=== PATIENT | male | born 1940 | race Caucasian/White ===

== ENCOUNTER → 2016-11-30 | Outpatient (CLI) | payer MEDICARE, OTHER ==
[2016-11-30 10:22] LABS: PROTHROMBIN TIME 13.5 SEC (11.4-15.4)
[2016-11-30 10:23] LABS: PARTIAL THROMBOPLASTIN TIME 31.8 SEC (23.5-35.8)
== END ==
LOC: OD 08:35
PROVIDERS: ATTEND Physician Assistant
DX: Z79.01 Long term (current) use of anticoagulants (principal)
CPT/HCPCS: 36415; 85610; 85730

== ENCOUNTER 2017-01-13 14:18 | Emergency (ER) | payer MEDICARE, OTHER ==
--- NOTE | 2017-01-13 14:24 | ER Document Report ---
ED Medical Screen (RME) - General Stated Complaint: BLOOD IN URINE Mode of Arrival: Ambulatory Information source: Patient Notes: c/o blood in urine, described as pink coloration to his urine with small specks of blood, this morning when he got up. He had a medical procedure at hospital in [place], urethral dilatation, clean out and enlarged prostate. He had catheter taken out on Tuesday, follow-up on Tuesday and every seemed fine at that time. His urologist is Dr. Frazier. Denies abdominal pain, nausea, vomiting. Endorses smoking (10 cigs/day). I have greeted and performed a rapid initial assessment of this patient. A comprehensive ED assessment and evaluation of the patient, analysis of test results and completion of the medical decision making process will be conducted by additional ED providers. TRAVEL OUTSIDE OF THE [place] IN LAST 30 DAYS: No - Related Data Allergies/Adverse Reactions: No Known Allergies Allergy (Verified 01/13/17 14:22) Past Medical History - Past Medical History Cardiac Medical History: Reports: Hx Atrial Fibrillation, Hx Heart Attack - ? "10-20 years ago" Endocrine Medical History: Reports: Hx Diabetes Mellitus Type 2 Past Surgical History: Reports: Hx Cardiac Catheterization, Hx Cardiac Surgery - ablation, Hx Cholecystectomy, Hx Pacemaker
[2017-01-13 14:26] VITALS: BP 131/71
[2017-01-13 15:00] LABS: APPEARANCE,URINE SLIGHTLY-CLOUDY; BILIRUBIN,URINE NEGATIVE (NEGATIVE); GLUCOSE, URINE NEGATIVE (NEGATIVE); KETONES,URINE NEGATIVE (NEGATIVE); LEUKOCYTE ESTERASE,URINE SMALL (NEGATIVE); NITRITE,URINE NEGATIVE (NEGATIVE); PROTEIN,URINE 100 mg/dL (NEGATIVE); URINE SPECIFIC GRAVITY 1.008; UROBILINOGEN,URINE NEGATIVE mg/dL (<2.0)
--- NOTE | 2017-01-13 15:16 | ER Document Report ---
ED GI/ - General Mode of Arrival: Ambulatory Information source: Patient TRAVEL OUTSIDE OF THE [place] IN LAST 30 DAYS: No - HPI Patient complains to provider of: Hematuria. No: Dysuria Onset: This morning Associated symptoms: Other - see above <JAMAR MILLER - Last Filed: 01/13/17 16:13> <PIEROLYDIA OBANDO ANDREW - Last Filed: 01/13/17 22:43> - General Chief Complaint: Urinary Problem Stated Complaint: BLOOD IN URINE Notes: 76 year old male with history of a TURP procedure performed 1.5 weeks ago presents to the ED complaining of hematuria that began this morning. Patient reports that he had no complications with the TURP procedure. Patient denies dysuria, abdominal pain, or back pain, but reports constipation for the past 2- 3 days. Patient is currently on Coumadin. Patient's urologist is Dr. Frazier. ( JAMAR MILLER) - Related Data Allergies/Adverse Reactions: No Known Allergies Allergy (Verified 01/13/17 14:22) Past Medical History - General Information source: Patient - Social History Smoking Status: Current Every Day Smoker Chew tobacco use (# tins/day): No Frequency of alcohol use: None Drug Abuse: None Family History: Reviewed & Not Pertinent Patient has suicidal ideation: No Patient has homicidal ideation: No - Past Medical History Cardiac Medical History: Reports: Hx Atrial Fibrillation, Hx Heart Attack - ? "10-20 years ago", Hx Hypertension Endocrine Medical History: Reports: Hx Diabetes Mellitus Type 2 Renal/ Medical History: Denies: Hx Peritoneal Dialysis Past Surgical History: Reports: Hx Cardiac Catheterization, Hx Cardiac Surgery - ablation, Hx Cholecystectomy, Hx Pacemaker, Other - TURP procedure December 2016 - Immunizations Hx Diphtheria, Pertussis, Tetanus Vaccination: Yes <JAMAR MILLER - Last Filed: 01/13/17 16:13> Review of Systems - Review of Systems Constitutional: No symptoms reported EENT: No symptoms reported Cardiovascular: No symptoms reported Respiratory: No symptoms reported Gastrointestinal: See HPI, Constipation. denies: Abdominal pain Genitourinary: See HPI, Hematuria. denies: Dysuria Male Genitourinary: No symptoms reported Musculoskeletal: No symptoms reported. denies: Back pain Skin: No symptoms reported Hematologic/Lymphatic: No symptoms reported Neurological/Psychological: No symptoms reported -: Yes All other systems reviewed and negative <JAMAR MILLER - Last Filed: 01/13/17 16:13> Physical Exam - Vital signs Interpretation: Normal - General General appearance: Alert In distress: None - HEENT Head: Normocephalic, Atraumatic Eyes: Normal Extraocular movements intact: Yes Pupils: PERRL - Respiratory Respiratory status: No respiratory distress Breath sounds: Normal - Cardiovascular Rhythm: Regular Heart sounds: Normal auscultation - Abdominal Inspection: Normal - Back Back: Normal, Nontender - Extremities General upper extremity: Normal inspection, Normal ROM General lower extremity: Normal inspection, Normal ROM - Neurological Neuro grossly intact: Yes Cognition: Normal Orientation: AAOx4 Lulu Coma Scale Eye Opening: Spontaneous Lulu Coma Scale Verbal: Oriented [place] Coma Scale Motor: Obeys Commands Lulu Coma Scale Total: 15 Speech: Normal - Psychological Associated symptoms: Normal affect, Normal mood - Skin Skin Temperature: Warm Skin Moisture: Dry Skin Color: Normal <JAMAR MILLER - Last Filed: 01/13/17 16:13> Course - Laboratory Result Diagrams: 01/13/17 15:40 01/13/17 15:40 - Consults Dr. Garnett Time consulted: 15:18 <JAMAR MILLER - Last Filed: 01/13/17 16:13> - Laboratory Result Diagrams: 01/13/17 15:40 01/13/17 15:40 <LYDIA GARRIDO - Last Filed: 01/13/17 22:43> - Re-evaluation Re-evalutation: 01/13/17 Patient with hematuria. Patient's was discussed with Dr. Garnett from urology. Recommends keeping the patient on his Bactrim. Would not switch antibiotic. Would not give any IM or IV antibiotic. Patient is to follow-up with Dr. Frazier as scheduled. Chin immediately if any retention, dysuria, fever, nausea vomiting or any other concerns. Patient agrees with plan. He has not been taking his Coumadin because it was held for surgery. He has an appointment with his primary doctor. Stable for discharge. (LYDIA GARRIDO) - Vital Signs Vital signs: Temp Pulse Resp BP Pulse Ox 97.8 F 87 18 131/71 H 95 01/13/17 14:22 01/13/17 14:22 01/13/17 14:22 01/13/17 14:22 01/13/17 14:22 - Laboratory Laboratory results interpreted by me: 01/13/17 01/13/17 01/13/17 14:25 15:40 15:40 RBC 3.84 L Hgb 12.8 L MCV 99 H MCH 33.5 H Sodium 133.0 L Creatinine 1.42 H Est GFR ( Amer) 59 L Est GFR (Non-Af Amer) 49 L Urine Protein 100 H Urine Blood LARGE H Ur Leukocyte Esterase SMALL H - Consults Dr. Garnett Reason for consultation: 01/13/17 15:18 Patient was discussed with Dr. Garnett and reports that the hematuria is from the TURP procedure. Dr. Garnett recommends not to change the patient's antibiotics and states that he doesn't necessarily need a urine culture. (JAMAR MILLER) Discharge <JAMAR MILLER - Last Filed: 01/13/17 16:13> <LYDIA GARRIDO - Last Filed: 01/13/17 22:43> - Discharge Clinical Impression: Hematuria Condition: Stable Disposition: HOME, SELF-CARE Instructions: Hematuria ([facility]) Additional Instructions: Please follow-up with your urologist. Please return if you have any further concerns or symptoms. Referrals: FARIDA FRAZIER MD [NO LOCAL MD] - Follow up as needed Scribe Attestation: 01/13/17 22:43 I personally performed the services described in the documentation, reviewed and edited the documentation which was dictated to the scribe in my presence, and it accurately records my words and actions. (LYDIA GARRIDO) Scribe Documentation - Scribe Written by Scribe:: Mary Gillette, 01/13/2017 1621 acting as scribe for :: Ermias <JAMAR MILLER - Last Filed: 01/13/17 16:13>
[2017-01-13 15:49] LABS: ABSOLUTE BASOPHILS # (AUTO) 0.1 10^3/uL (0.0-0.2); ABSOLUTE LYMPHOCYTES (AUTO) 1.7 10^3/uL (0.5-4.7); ABSOLUTE MONOCYTES (AUTO) 0.5 10^3/uL (0.1-1.4); BASOPHILS % (AUTO) 1.2 % (0-2); EOSINOPHILS % (AUTO) 0.9 % (0-6); HEMOGLOBIN 12.8 g/dL (13.5-17.0); HGB HCT DIFFERENCE 0.4; LYMPHOCYTES % (AUTO) 32.5 % (13-45); MEAN CORPUSCULAR HEMOGLOBIN 33.5 pg (27.0-33.4); MEAN CORPUSCULAR HGB CONC 33.8 g/dL (32.0-36.0); MEAN CORPUSCULAR VOLUME 99 fl (80-97); MONOCYTES % (AUTO) 9.5 % (3-13); RED BLOOD COUNT 3.84 10^6/uL (4.35-5.55); RED CELL DISTRIBUTION WIDTH 13.4 % (11.5-14.0); SEGMENTED NEUTROPHILS % (AUTO) 55.9 % (42-78); WHITE BLOOD COUNT 5.4 10^3/uL (4.0-10.5)
[2017-01-13 15:55] LABS: PROTHROMBIN TIME 13.4 SEC (11.4-15.4)
[2017-01-13 16:16] LABS: ANION GAP 8 (5-19); BLOOD UREA NITROGEN 19 mg/dL (7-20); CALCIUM 8.8 mg/dL (8.4-10.2); CARBON DIOXIDE 27 mmol/L (22-30); CHLORIDE 98 mmol/L (98-107); CREATININE RESULT 1.42 mg/dL (0.52-1.25); GLUCOSE 105 mg/dL (75-110); POTASSIUM 4.8 mmol/L (3.6-5.0)
== END 2017-01-13 15:40 | disposition home or self-care (01) ==
LOC: ER 14:18
DX: R31.9 Hematuria, unspecified (principal); Z98.890 Other specified postprocedural states; K59.00 Constipation, unspecified; I10 Essential (primary) hypertension; E11.9 Type 2 diabetes mellitus without complications; F17.200 Nicotine dependence, unspecified, uncomplicated
CPT/HCPCS: 36415; 80048; 81001; 85025; 85610; 87086; 99283

== ENCOUNTER → 2017-01-14 | Outpatient (CLI) | payer MEDICARE, OTHER ==
[2017-01-14 14:13] LABS: ALANINE AMINOTRANSFERASE 51 U/L (21-72); ALBUMIN 3.9 g/dL (3.5-5.0); ALKALINE PHOSPHATASE 99 U/L (38-126); ASPARTATE AMINO TRANSFERASE 35 U/L (17-59); BILIRUBIN,TOTAL 0.7 mg/dL (0.2-1.3); CHOLESTEROL 119.88 mg/dL (0-200); Direct HDL 38 mg/dL (>40); TOTAL PROTEIN 6.4 g/dL (6.3-8.2); TRIGLYCERIDES 68 mg/dL (<150)
[2017-01-14 14:24] LABS: DIRECT LDL 61 mg/dL (<100)
== END ==
LOC: OD 12:45
PROVIDERS: ATTEND Specialist
DX: E78.4 Other hyperlipidemia (principal); E11.65 Type 2 diabetes mellitus with hyperglycemia; I10 Essential (primary) hypertension; I34.0 Nonrheumatic mitral (valve) insufficiency; I44.2 Atrioventricular block, complete; I25.10 Atherosclerotic heart disease of native coronary artery without angina pectoris; Z79.899 Other long term (current) drug therapy; I48.2 Chronic atrial fibrillation; I48.92 Unspecified atrial flutter; R06.00 Dyspnea, unspecified; R94.5 Abnormal results of liver function studies; F17.210 Nicotine dependence, cigarettes, uncomplicated; Z79.01 Long term (current) use of anticoagulants; Z95.0 Presence of cardiac pacemaker
CPT/HCPCS: 36415; 80061; 80076; 83036

== ENCOUNTER 2017-01-15 13:44 | Emergency (ER) | payer MEDICARE, OTHER ==
[2017-01-15 13:49] VITALS: BP 122/63
--- NOTE | 2017-01-15 13:50 | ER Document Report ---
ED Medical Screen (RME) - General Stated Complaint: BLOOD IN URINE Time seen by provider: 13:48 Mode of Arrival: Ambulatory Information source: Patient Notes: 76-year-old male with a history of benign prostatic hypertrophy had a TURP by Dr. Frazier 01-05-17. He had 3 episodes of painless hematuria today he thinks he accidentally took 5 mg of Warfarin last night. TRAVEL OUTSIDE OF THE [place] IN LAST 30 DAYS: No - Related Data Allergies/Adverse Reactions: No Known Allergies Allergy (Verified 01/13/17 14:22) Past Medical History - Past Medical History Cardiac Medical History: Reports: Hx Atrial Fibrillation, Hx Heart Attack - ? "10-20 years ago", Hx Hypertension Endocrine Medical History: Reports: Hx Diabetes Mellitus Type 2 Renal/ Medical History: Denies: Hx Peritoneal Dialysis Past Surgical History: Reports: Hx Cardiac Catheterization, Hx Cardiac Surgery - ablation, Hx Cholecystectomy, Hx Pacemaker, Other - TURP procedure December 2016 - Immunizations Hx Diphtheria, Pertussis, Tetanus Vaccination: Yes
[2017-01-15 14:09] LABS: ABSOLUTE BASOPHILS # (AUTO) 0.1 10^3/uL (0.0-0.2); ABSOLUTE LYMPHOCYTES (AUTO) 2.1 10^3/uL (0.5-4.7); ABSOLUTE MONOCYTES (AUTO) 0.5 10^3/uL (0.1-1.4); BASOPHILS % (AUTO) 0.9 % (0-2); EOSINOPHILS % (AUTO) 0.6 % (0-6); HEMATOCRIT 37.8 % (37.9-51.0); HEMOGLOBIN 12.8 g/dL (13.5-17.0); HGB HCT DIFFERENCE 0.6; LYMPHOCYTES % (AUTO) 30.9 % (13-45); MEAN CORPUSCULAR HEMOGLOBIN 33.4 pg (27.0-33.4); MEAN CORPUSCULAR HGB CONC 33.8 g/dL (32.0-36.0); MEAN CORPUSCULAR VOLUME 99 fl (80-97); MONOCYTES % (AUTO) 7.9 % (3-13); RED BLOOD COUNT 3.83 10^6/uL (4.35-5.55); RED CELL DISTRIBUTION WIDTH 13.5 % (11.5-14.0); SEGMENTED NEUTROPHILS % (AUTO) 59.7 % (42-78); WHITE BLOOD COUNT 6.6 10^3/uL (4.0-10.5)
[2017-01-15 14:17] LABS: PROTHROMBIN TIME 14.1 SEC (11.4-15.4)
[2017-01-15 14:18] LABS: APPEARANCE,URINE SLIGHTLY-CLOUDY; BILIRUBIN,URINE NEGATIVE (NEGATIVE); GLUCOSE, URINE NEGATIVE (NEGATIVE); KETONES,URINE NEGATIVE (NEGATIVE); LEUKOCYTE ESTERASE,URINE TRACE (NEGATIVE); NITRITE,URINE NEGATIVE (NEGATIVE); PARTIAL THROMBOPLASTIN TIME 32.8 SEC (23.5-35.8); PROTEIN,URINE >=500 mg/dL (NEGATIVE); URINE SPECIFIC GRAVITY 1.017
[2017-01-15 14:28] LABS: ALANINE AMINOTRANSFERASE 37 U/L (21-72); ALBUMIN 3.9 g/dL (3.5-5.0); ALKALINE PHOSPHATASE 89 U/L (38-126); ANION GAP 9 (5-19); ASPARTATE AMINO TRANSFERASE 35 U/L (17-59); BILIRUBIN,TOTAL 0.7 mg/dL (0.2-1.3); BLOOD UREA NITROGEN 18 mg/dL (7-20); CALCIUM 9.4 mg/dL (8.4-10.2); CARBON DIOXIDE 28 mmol/L (22-30); CHLORIDE 102 mmol/L (98-107); CREATININE RESULT 1.59 mg/dL (0.52-1.25); GLUCOSE 152 mg/dL (75-110); SODIUM 138.8 mmol/L (137-145); TOTAL PROTEIN 6.4 g/dL (6.3-8.2)
--- NOTE | 2017-01-15 14:28 | ER Document Report ---
ED GI/ - General Information source: Patient - HPI Patient complains to provider of: Hematuria Associated symptoms: Other - See above <DESTINY KING - Last Filed: 01/15/17 15:56> - General Mode of Arrival: Ambulatory TRAVEL OUTSIDE OF THE [place] IN LAST 30 DAYS: No <LYDIA GARRIDO - Last Filed: 01/15/17 23:08> - General Chief Complaint: Urinary Problem Stated Complaint: BLOOD IN URINE Notes: Patient is a 76 year old male who presents to the emergency department complaining of blood in urine. Patient was seen at this facility 2 days ago with similar complaints and this morning noticed that the blood in his urine appeared worse. Patient admits that he may have taken a blood thinner with his medications last night. Patient denies fever, back pain, and difficulty urinating. (DESTINY KING) - Related Data Allergies/Adverse Reactions: No Known Allergies Allergy (Verified 01/13/17 14:22) Past Medical History - General Information source: Patient - Social History Smoking Status: Current Every Day Smoker Chew tobacco use (# tins/day): Yes Frequency of alcohol use: None Drug Abuse: None Family History: Reviewed & Not Pertinent Patient has suicidal ideation: No Patient has homicidal ideation: No - Past Medical History Cardiac Medical History: Reports: Hx Atrial Fibrillation, Hx Heart Attack - ? "10-20 years ago", Hx Hypertension Endocrine Medical History: Reports: Hx Diabetes Mellitus Type 2 Renal/ Medical History: Denies: Hx Peritoneal Dialysis Past Surgical History: Reports: Hx Cardiac Catheterization, Hx Cardiac Surgery - ablation, Hx Cholecystectomy, Hx Pacemaker, Other - TURP procedure December 2016 - Immunizations Hx Diphtheria, Pertussis, Tetanus Vaccination: Yes <LYDIA GARRIDO - Last Filed: 01/15/17 23:08> Review of Systems - Review of Systems Constitutional: denies: Fever EENT: No symptoms reported Cardiovascular: No symptoms reported Respiratory: No symptoms reported Gastrointestinal: No symptoms reported Genitourinary: See HPI, Hematuria. denies: Other - Difficulty urinating Male Genitourinary: No symptoms reported Musculoskeletal: denies: Back pain Skin: No symptoms reported Hematologic/Lymphatic: No symptoms reported Neurological/Psychological: No symptoms reported -: Yes All other systems reviewed and negative <DESTINY KING - Last Filed: 01/15/17 15:56> Physical Exam - Vital signs Interpretation: Normal - General General appearance: Appears well, Alert - HEENT Head: Normocephalic, Atraumatic - Respiratory Respiratory status: No respiratory distress - Extremities General upper extremity: Normal inspection, Normal ROM, Normal strength General lower extremity: Normal inspection, Normal ROM, Normal strength - Neurological Neuro grossly intact: Yes Cognition: Normal Orientation: AAOx4 Lulu Coma Scale Eye Opening: Spontaneous [place] Coma Scale Verbal: Oriented [place] Coma Scale Motor: Obeys Commands Lulu Coma Scale Total: 15 Speech: Normal Motor strength normal: LUE, RUE, LLE, RLE - Psychological Associated symptoms: Normal affect, Normal mood - Skin Skin Temperature: Warm Skin Moisture: Dry Skin Color: Normal <DESTINY KING - Last Filed: 01/15/17 15:56> Course - Laboratory Result Diagrams: 01/15/17 13:55 01/15/17 13:55 <DESTINY KING - Last Filed: 01/15/17 15:56> - Laboratory Result Diagrams: 01/15/17 13:55 01/15/17 13:55 <LYDIA GARRIDO - Last Filed: 01/15/17 23:08> - Re-evaluation Re-evalutation: 01/15/17 Patient appears well. Blood work and urine within normal limits. Urine cultures reviewed from 2 days ago with no growth. Patient had been discussed with his urologist by myself 2 days ago. The patient is able to urinate, he can follow-up in the clinic. No need to change antibiotics. Patient thinks that she took a dose of warfarin by mistake. Stable for discharge. Return if any further concerns. (LYDIA GARRIDO) - Vital Signs Vital signs: Temp Pulse Resp BP Pulse Ox 97.8 F 81 18 122/63 100 01/15/17 13:48 01/15/17 13:48 01/15/17 13:48 01/15/17 13:48 01/15/17 13:48 - Laboratory Laboratory results interpreted by me: 01/15/17 01/15/17 01/15/17 13:55 13:55 13:55 RBC 3.83 L Hgb 12.8 L Hct 37.8 L MCV 99 H Creatinine 1.59 H Est GFR ( Amer) 52 L Est GFR (Non-Af Amer) 43 L Glucose 152 H Urine Protein >=500 H Urine Blood LARGE H Urine Urobilinogen 2.0 H Ur Leukocyte Esterase TRACE H Urine Ascorbic Acid 40 H Discharge <DESTINY KING - Last Filed: 01/15/17 15:56> <LYDIA GARRIDO - Last Filed: 01/15/17 23:08> - Discharge Clinical Impression: Hematuria Condition: Stable Disposition: HOME, SELF-CARE Instructions: Hematuria ([facility]) Additional Instructions: Please follow-up with your urologist this week. Scribe Attestation: 01/15/17 23:08 I personally performed the services described in the documentation, reviewed and edited the documentation which was dictated to the scribe in my presence, and it accurately records my words and actions. (LYDIA GARRIDO) Scribe Documentation - Scribe Written by Jenifere:: samantha Diaz, 01/15/17, 0873 acting as scribe for :: Neida <DESTINY KING - Last Filed: 01/15/17 15:56>
== END 2017-01-15 14:30 | disposition home or self-care (01) ==
LOC: ER 13:44
DX: R31.9 Hematuria, unspecified (principal); R39.198 Other difficulties with micturition; F17.210 Nicotine dependence, cigarettes, uncomplicated
CPT/HCPCS: 36415; 80053; 81001; 85025; 85610; 85730; 87086; 99283

== ENCOUNTER → 2017-01-21 | Outpatient (CLI) | payer MEDICARE, OTHER ==
[2017-01-21 17:06] LABS: ALANINE AMINOTRANSFERASE 40 U/L (21-72); ALBUMIN 3.8 g/dL (3.5-5.0); ALKALINE PHOSPHATASE 86 U/L (38-126); ANION GAP 11 (5-19); ASPARTATE AMINO TRANSFERASE 28 U/L (17-59); BILIRUBIN,TOTAL 0.6 mg/dL (0.2-1.3); BLOOD UREA NITROGEN 13 mg/dL (7-20); CARBON DIOXIDE 27 mmol/L (22-30); CHLORIDE 99 mmol/L (98-107); CREATININE RESULT 0.99 mg/dL (0.52-1.25); GLUCOSE 86 mg/dL (75-110); POTASSIUM 4.8 mmol/L (3.6-5.0); SODIUM 136.6 mmol/L (137-145)
== END ==
LOC: OD 14:38
PROVIDERS: ATTEND Physician Assistant
DX: E11.9 Type 2 diabetes mellitus without complications (principal)
CPT/HCPCS: 36415; 80053

== ENCOUNTER → 2017-02-14 | Outpatient (CLI) | payer MEDICARE, OTHER ==
[2017-02-14 10:00] LABS: PARTIAL THROMBOPLASTIN TIME 33.7 SEC (23.5-35.8); PROTHROMBIN TIME 13.3 SEC (11.4-15.4)
== END ==
LOC: OD 09:00
PROVIDERS: ATTEND Student in an Organized Health Care Education/Training Program
DX: Z79.01 Long term (current) use of anticoagulants (principal)
CPT/HCPCS: 36415; 85610; 85730

== ENCOUNTER → 2017-03-15 | Outpatient (CLI) | payer MEDICARE, OTHER ==
[2017-03-15 10:55] LABS: PROTHROMBIN TIME 38.2 SEC (11.4-15.4)
== END ==
LOC: OD 09:54
PROVIDERS: ATTEND Specialist
DX: I48.3 Typical atrial flutter (principal); Z79.01 Long term (current) use of anticoagulants
CPT/HCPCS: 36415; 85610

== ENCOUNTER → 2017-03-24 | Outpatient (CLI) | payer MEDICARE, OTHER ==
[2017-03-24 09:12] LABS: PROTHROMBIN TIME 36.1 SEC (11.4-15.4)
== END ==
LOC: OD 08:12
PROVIDERS: ATTEND Specialist
DX: I48.3 Typical atrial flutter (principal); Z79.01 Long term (current) use of anticoagulants
CPT/HCPCS: 36415; 85610

== ENCOUNTER → 2017-04-05 | Outpatient (CLI) | payer MEDICARE, OTHER ==
[2017-04-05 11:24] LABS: PROTHROMBIN TIME 32.9 SEC (11.4-15.4)
== END ==
LOC: OD 10:45
PROVIDERS: ATTEND Specialist
DX: I48.3 Typical atrial flutter (principal); Z79.01 Long term (current) use of anticoagulants
CPT/HCPCS: 36415; 85610

== ENCOUNTER → 2017-05-10 | Outpatient (CLI) | payer MEDICARE, OTHER ==
[2017-05-10 08:33] LABS: PROTHROMBIN TIME 13.8 SEC (11.4-15.4)
[2017-05-10 08:34] LABS: PARTIAL THROMBOPLASTIN TIME 35.5 SEC (23.5-35.8)
== END ==
LOC: OD 07:02
PROVIDERS: ATTEND Physician Assistant
DX: Z79.01 Long term (current) use of anticoagulants (principal)
CPT/HCPCS: 36415; 85610; 85730

== ENCOUNTER → 2017-05-19 | Outpatient (CLI) | payer MEDICARE, OTHER ==
[2017-05-19 09:04] LABS: ABSOLUTE BASOPHILS # (AUTO) 0.1 10^3/uL (0.0-0.2); ABSOLUTE EOSINOPHILS # (AUTO) 0.1 10^3/uL (0.0-0.6); ABSOLUTE LYMPHOCYTES (AUTO) 2.3 10^3/uL (0.5-4.7); ABSOLUTE MONOCYTES (AUTO) 0.7 10^3/uL (0.1-1.4); ABSOLUTE NEUT (AUTO) 4.5 10^3/uL (1.7-8.2); BASOPHILS % (AUTO) 1.5 % (0-2); EOSINOPHILS % (AUTO) 1.3 % (0-6); HEMATOCRIT 42.5 % (37.9-51.0); HEMOGLOBIN 13.9 g/dL (13.5-17.0); HGB HCT DIFFERENCE -0.8; LYMPHOCYTES % (AUTO) 30.2 % (13-45); MEAN CORPUSCULAR HEMOGLOBIN 33.1 pg (27.0-33.4); MEAN CORPUSCULAR HGB CONC 32.6 g/dL (32.0-36.0); MEAN CORPUSCULAR VOLUME 101 fl (80-97); RED CELL DISTRIBUTION WIDTH 13.4 % (11.5-14.0); WHITE BLOOD COUNT 7.8 10^3/uL (4.0-10.5)
[2017-05-19 09:31] LABS: ALANINE AMINOTRANSFERASE 62 U/L (21-72); ALBUMIN 4.1 g/dL (3.5-5.0); ALKALINE PHOSPHATASE 82 U/L (38-126); ANION GAP 9 (5-19); ASPARTATE AMINO TRANSFERASE 31 U/L (17-59); BILIRUBIN,DIRECT 0.3 mg/dL (0.0-0.4); BILIRUBIN,TOTAL 0.7 mg/dL (0.2-1.3); BLOOD UREA NITROGEN 26 mg/dL (7-20); CARBON DIOXIDE 29 mmol/L (22-30); CHLORIDE 103 mmol/L (98-107); CREATININE RESULT 0.94 mg/dL (0.52-1.25); Direct HDL 48 mg/dL (>40); GLUCOSE 101 mg/dL (75-110); POTASSIUM 4.7 mmol/L (3.6-5.0); SODIUM 140.5 mmol/L (137-145); TOTAL PROTEIN 7.1 g/dL (6.3-8.2); TRIGLYCERIDES 76 mg/dL (<150)
[2017-05-19 09:43] LABS: DIRECT LDL 60 mg/dL (<100)
[2017-05-19 09:50] LABS: ALANINE AMINOTRANSFERASE 62 U/L (21-72); ALBUMIN 4.1 g/dL (3.5-5.0); ALKALINE PHOSPHATASE 82 U/L (38-126); ASPARTATE AMINO TRANSFERASE 31 U/L (17-59)
[2017-05-19 09:51] LABS: BILIRUBIN,DIRECT 0.3 mg/dL (0.0-0.4); BILIRUBIN,TOTAL 0.7 mg/dL (0.2-1.3); DIRECT LDL 60 mg/dL (<100); TOTAL PROTEIN 7.1 g/dL (6.3-8.2); TRIGLYCERIDES 76 mg/dL (<150); VLDL CHOLESTEROL 15.2 mg/dL (10-31)
[2017-05-19 09:52] LABS: Direct HDL 48 mg/dL (>40)
== END ==
LOC: OD 08:36
PROVIDERS: ATTEND Physician Assistant
DX: E11.9 Type 2 diabetes mellitus without complications (principal); E78.5 Hyperlipidemia, unspecified; I10 Essential (primary) hypertension; R53.83 Other fatigue; R94.5 Abnormal results of liver function studies; Z79.899 Other long term (current) drug therapy; J44.9 Chronic obstructive pulmonary disease, unspecified; I48.2 Chronic atrial fibrillation; I34.0 Nonrheumatic mitral (valve) insufficiency; Z95.0 Presence of cardiac pacemaker; I25.10 Atherosclerotic heart disease of native coronary artery without angina pectoris; R06.00 Dyspnea, unspecified; Z79.01 Long term (current) use of anticoagulants; F17.210 Nicotine dependence, cigarettes, uncomplicated
CPT/HCPCS: 36415; 80053; 80061; 80076; 83036; 84443; 85025

== ENCOUNTER → 2017-05-30 | Outpatient (CLI) | payer MEDICARE, OTHER | LOC: OD 12:40 | PROVIDERS: ATTEND Specialist | DX: I48.3 Typical atrial flutter (principal); Z79.01 Long term (current) use of anticoagulants | CPT/HCPCS: 36415; 85610 ==

== ENCOUNTER → 2017-07-29 | Outpatient (CLI) | payer MEDICARE, OTHER ==
[2017-07-29 15:05] LABS: PROTHROMBIN TIME 28.7 SEC (11.4-15.4)
== END ==
LOC: OD 13:38
PROVIDERS: ATTEND Specialist
DX: I48.2 Chronic atrial fibrillation (principal); Z79.01 Long term (current) use of anticoagulants
CPT/HCPCS: 36415; 85610

== ENCOUNTER → 2017-08-25 | Outpatient (CLI) | payer MEDICARE, OTHER ==
[2017-08-25 11:30] LABS: PROTHROMBIN TIME 30.7 SEC (11.4-15.4)
== END ==
LOC: OD 10:32
PROVIDERS: ATTEND Specialist
DX: I48.2 Chronic atrial fibrillation (principal); Z79.01 Long term (current) use of anticoagulants
CPT/HCPCS: 36415; 85610

== ENCOUNTER → 2017-09-30 | Outpatient (CLI) | payer MEDICARE, OTHER ==
[2017-09-30 10:22] LABS: PROTHROMBIN TIME 38.3 SEC (11.4-15.4)
[2017-09-30 10:48] LABS: ALANINE AMINOTRANSFERASE 46 U/L (21-72); ALBUMIN 3.9 g/dL (3.5-5.0); ALKALINE PHOSPHATASE 107 U/L (38-126); ASPARTATE AMINO TRANSFERASE 37 U/L (17-59); BILIRUBIN,DIRECT 0.4 mg/dL (0.0-0.4); BILIRUBIN,TOTAL 0.9 mg/dL (0.2-1.3); CHOLESTEROL 114.93 mg/dL (0-200); Direct HDL 38 mg/dL (>40); TOTAL PROTEIN 6.3 g/dL (6.3-8.2); TRIGLYCERIDES 70 mg/dL (<150)
[2017-09-30 10:58] LABS: DIRECT LDL 65 mg/dL (<100)
== END ==
LOC: OD 09:35
PROVIDERS: ATTEND Specialist
DX: Z01.810 Encounter for preprocedural cardiovascular examination (principal); E11.9 Type 2 diabetes mellitus without complications; E78.4 Other hyperlipidemia; I48.2 Chronic atrial fibrillation; I10 Essential (primary) hypertension; I25.10 Atherosclerotic heart disease of native coronary artery without angina pectoris; I34.0 Nonrheumatic mitral (valve) insufficiency; Z95.0 Presence of cardiac pacemaker; R06.00 Dyspnea, unspecified; Z79.01 Long term (current) use of anticoagulants; F17.210 Nicotine dependence, cigarettes, uncomplicated; I48.92 Unspecified atrial flutter; R94.5 Abnormal results of liver function studies; Z79.899 Other long term (current) drug therapy
CPT/HCPCS: 36415; 80061; 80076; 83036; 85610

== ENCOUNTER → 2017-12-19 | Outpatient (CLI) | payer MEDICARE, OTHER ==
[2017-12-19 13:13] LABS: INTERNATIONAL RATION (INR) 3.47; PROTHROMBIN TIME 36.5 SEC (11.4-15.4)
== END ==
LOC: OD 11:54
PROVIDERS: ATTEND Specialist
DX: I48.2 Chronic atrial fibrillation (principal); Z79.01 Long term (current) use of anticoagulants
CPT/HCPCS: 36415; 85610

== ENCOUNTER → 2018-01-16 | Outpatient (CLI) | payer MEDICARE, OTHER ==
[2018-01-16 15:39] LABS: INTERNATIONAL RATION (INR) 3.88; PROTHROMBIN TIME 39.8 SEC (11.4-15.4)
== END ==
LOC: OD 14:28
PROVIDERS: ATTEND Specialist
DX: I48.2 Chronic atrial fibrillation (principal); Z79.01 Long term (current) use of anticoagulants
CPT/HCPCS: 36415; 85610

== ENCOUNTER → 2018-01-30 | Outpatient (CLI) | payer MEDICARE, OTHER ==
[2018-01-30 10:09] LABS: CHOLESTEROL 120.65 mg/dL (0-200); TRIGLYCERIDES 73 mg/dL (<150)
[2018-01-30 10:37] LABS: DIRECT LDL 77 mg/dL (<100)
== END ==
LOC: OD 09:14
PROVIDERS: ATTEND Specialist
DX: E78.4 Other hyperlipidemia (principal); E11.9 Type 2 diabetes mellitus without complications; I10 Essential (primary) hypertension; I48.2 Chronic atrial fibrillation; I34.0 Nonrheumatic mitral (valve) insufficiency; J44.9 Chronic obstructive pulmonary disease, unspecified; I44.2 Atrioventricular block, complete; Z95.0 Presence of cardiac pacemaker; I25.10 Atherosclerotic heart disease of native coronary artery without angina pectoris; R06.00 Dyspnea, unspecified; Z79.01 Long term (current) use of anticoagulants; F17.210 Nicotine dependence, cigarettes, uncomplicated; R94.5 Abnormal results of liver function studies; Z79.899 Other long term (current) drug therapy
CPT/HCPCS: 36415; 80061; 83036

== ENCOUNTER → 2018-02-16 | Outpatient (CLI) | payer MEDICARE, OTHER ==
[2018-02-16 10:23] LABS: INTERNATIONAL RATION (INR) 2.83; PROTHROMBIN TIME 31.1 SEC (11.4-15.4)
== END ==
LOC: OD 09:18
PROVIDERS: ATTEND Specialist
DX: I48.2 Chronic atrial fibrillation (principal); Z79.01 Long term (current) use of anticoagulants
CPT/HCPCS: 36415; 85610

== ENCOUNTER → 2018-02-27 | Outpatient (CLI) | payer MEDICARE, OTHER ==
[2018-02-27 10:17] LABS: INTERNATIONAL RATION (INR) 0.97; PARTIAL THROMBOPLASTIN TIME 35.1 SEC (23.5-35.8); PROTHROMBIN TIME 13.4 SEC (11.4-15.4)
== END ==
LOC: OD 09:19
PROVIDERS: ATTEND Pain Medicine Interventional Pain Medicine
DX: Z51.81 Encounter for therapeutic drug level monitoring (principal); Z79.01 Long term (current) use of anticoagulants
CPT/HCPCS: 36415; 85610; 85730

== ENCOUNTER → 2018-04-18 | Outpatient (CLI) | payer MEDICARE, OTHER ==
[2018-04-18 14:18] LABS: INTERNATIONAL RATION (INR) 3.02; PROTHROMBIN TIME 32.7 SEC (11.4-15.4)
== END ==
LOC: OD 13:11
PROVIDERS: ATTEND Specialist
DX: I48.2 Chronic atrial fibrillation (principal); Z79.01 Long term (current) use of anticoagulants
CPT/HCPCS: 36415; 85610

== ENCOUNTER → 2018-05-03 | Outpatient (CLI) | payer MEDICARE, OTHER ==
[2018-05-03 15:30] LABS: INTERNATIONAL RATION (INR) 0.99; PROTHROMBIN TIME 13.5 SEC (11.4-15.4)
[2018-05-03 15:31] LABS: PARTIAL THROMBOPLASTIN TIME 32.9 SEC (23.5-35.8)
== END ==
LOC: OD 14:40
PROVIDERS: ATTEND Pain Medicine Interventional Pain Medicine
DX: Z79.01 Long term (current) use of anticoagulants (principal); Z79.891 Long term (current) use of opiate analgesic
CPT/HCPCS: 36415; 85610; 85730

== ENCOUNTER → 2018-05-09 | Outpatient (CLI) | payer MEDICARE, OTHER ==
--- NOTE | 2018-05-09 15:47 | RADIOLOGY REPORT (SQ) ---
EXAM DESCRIPTION: CT LUMBAR SPINE WITHOUT COMPLETED DATE/TIME: 05/09/2018 2:51 pm REASON FOR STUDY: INTERVERTEBRAL DISC DEGENERATION, LUMBAR SPINE M51.36 OTHER INTERVERTEBRAL DISC D EGENERATION, LUMBAR REGION COMPARISON: CT abdomen pelvis 07/20/2016 TECHNIQUE: Axial images acquired through the lumbar spine without intravenous contrast. Images revi ewed with lung, soft tissue and bone windows. Reconstructed coronal and sagittal MPR images reviewed . All images stored on PACS. All CT scanners at this facility use dose modulation, iterative reconstruction, and/or weight based d osing when appropriate to reduce radiation dose to as low as reasonably achievable (ALARA). [facility]: Dose Right [facility]: CareDose [facility]: Dose Right [facility]: Teradose 4D [facility]: [employer] RADIATION DOSE: 15.6 mGy. LIMITATIONS: None. FINDINGS: SEGMENTATION: Normal. No transitional anatomy. ALIGNMENT: Straightening of cervical lordosis VERTEBRAL BODIES: No fractures. No dislocation. No acute findings. DISCS: The T12-L1 and L1-2 disc levels are unremarkable. At L2-3, very mild posterior diffuse disc bulging is present with moderate bilateral facet and ligame nt hypertrophy. Borderline central canal stenosis. Mild bilateral inferior foraminal narrowing with out exiting L2 nerve root impingement. At L3-4, mild to moderate central canal stenosis results from broad diffuse posterior disc bulge and bony spurring and bulky bilateral facet and ligament hypertrophy. There is mild bilateral inferior f oraminal narrowing without exiting L3 nerve root impingement. At L4-5, moderate central canal stenosis results from broad diffuse posterior disc bulge and bony spu rring and moderate facet and ligament hypertrophy. Moderate bilateral foraminal narrowing is present without exiting L4 nerve root impingement. At L5-S1, broad diffuse posterior disc bulging is present left greater than right with bilateral face t arthropathy. Findings are suspicious for left paracentral disc protrusion/ herniation, flattening the thecal sac in the left lateral recess near the takeoff of the left S1 nerve root best shown on ax ial image 85. No significant central canal stenosis or right foraminal narrowing. Moderate left for aminal narrowing with partial effacement of the fat around the exiting left L5 nerve root. PEDICLES, TRANSVERSE PROCESSES: No fractures. No dislocation. No acute findings. FACETS, POSTERIOR ELEMENTS: No fractures. No dislocation. Multilevel facet arthropathy. HARDWARE: None in the spine. VISUALIZED RIBS: No fractures. SOFT TISSUES: No significant or acute finding in adjacent soft tissues. OTHER: No other significant finding. IMPRESSION: Mild to moderate central canal stenosis at L3-4 Moderate central canal stenosis at L4-5 At L5-S1, findings are suspicious for a left paracentral disc herniation flattening the thecal sac ne ar the takeoff of the left S1 nerve root in the lateral recess. Moderate left L5-S1 foraminal narrow ing with partial effacement of fat around the exiting left L5 nerve root TECHNICAL DOCUMENTATION: JOB ID: [id number] Quality ID # 436: Final reports with documentation of one or more dose reduction techniques (e.g., Au tomated exposure control, adjustment of the mA and/or kV according to patient size, use of iterative reconstruction technique) 2010 [employer]- All Rights Reserved Reading location - IP/workstation name: [email or web address]
== END ==
LOC: RAD 13:56
PROVIDERS: ATTEND Physician Assistant
DX: M51.36 Other intervertebral disc degeneration, lumbar region (principal)
CPT/HCPCS: 72131

== ENCOUNTER → 2018-08-14 | Outpatient (CLI) | payer MEDICARE, OTHER ==
[2018-08-14 13:08] LABS: INTERNATIONAL RATION (INR) 1.02; PROTHROMBIN TIME 13.9 SEC (11.4-15.4)
[2018-08-14 13:09] LABS: PARTIAL THROMBOPLASTIN TIME 33.8 SEC (23.5-35.8)
== END ==
LOC: OD 11:31
PROVIDERS: ATTEND Physician Assistant Medical
DX: Z51.81 Encounter for therapeutic drug level monitoring (principal); Z79.01 Long term (current) use of anticoagulants
CPT/HCPCS: 36415; 85610; 85730

== ENCOUNTER → 2018-08-22 | Outpatient (CLI) | payer MEDICARE, OTHER ==
[2018-08-22 10:18] LABS: CHOLESTEROL 140.46 mg/dL (0-200); TRIGLYCERIDES 95 mg/dL (<150)
[2018-08-22 10:33] LABS: DIRECT LDL 75 mg/dL (<100)
== END ==
LOC: OD 08:58
PROVIDERS: ATTEND Internal Medicine
DX: E78.49 Other hyperlipidemia (principal); J44.9 Chronic obstructive pulmonary disease, unspecified; I10 Essential (primary) hypertension; I25.10 Atherosclerotic heart disease of native coronary artery without angina pectoris; R06.00 Dyspnea, unspecified; I34.0 Nonrheumatic mitral (valve) insufficiency; I44.2 Atrioventricular block, complete; I48.2 Chronic atrial fibrillation; Z79.01 Long term (current) use of anticoagulants; Z95.0 Presence of cardiac pacemaker; F17.210 Nicotine dependence, cigarettes, uncomplicated; R94.5 Abnormal results of liver function studies; Z79.899 Other long term (current) drug therapy
CPT/HCPCS: 36415; 80061

== ENCOUNTER → 2018-10-24 | Outpatient (CLI) | payer MEDICARE, OTHER ==
[2018-10-24 09:31] LABS: INTERNATIONAL RATION (INR) 1.01; PROTHROMBIN TIME 13.8 SEC (11.4-15.4)
== END ==
LOC: OD 08:22
PROVIDERS: ATTEND Physician Assistant
DX: Z79.01 Long term (current) use of anticoagulants (principal)
CPT/HCPCS: 36415; 85610; 85730

== ENCOUNTER → 2018-11-22 | Outpatient (CLI) | payer MEDICARE, OTHER ==
[2018-11-22 13:36] LABS: ABSOLUTE BASOPHILS # (AUTO) 0.1 10^3/uL (0.0-0.2); ABSOLUTE EOSINOPHILS # (AUTO) 0.3 10^3/uL (0.0-0.6); ABSOLUTE LYMPHOCYTES (AUTO) 2.8 10^3/uL (0.5-4.7); ABSOLUTE MONOCYTES (AUTO) 0.6 10^3/uL (0.1-1.4); ABSOLUTE NEUT (AUTO) 3.5 10^3/uL (1.7-8.2); EOSINOPHILS % (AUTO) 4.6 % (0-6); HEMATOCRIT 39.1 % (37.9-51.0); HEMOGLOBIN 13.6 g/dL (13.5-17.0); LYMPHOCYTES % (AUTO) 38.4 % (13-45); MEAN CORPUSCULAR HEMOGLOBIN 34.8 pg (27.0-33.4); MEAN CORPUSCULAR HGB CONC 34.8 g/dL (32.0-36.0); MEAN CORPUSCULAR VOLUME 100 fl (80-97); PLATELET COUNT 197 10^3/uL (150-450); RED BLOOD COUNT 3.91 10^6/uL (4.35-5.55); RED CELL DISTRIBUTION WIDTH 13.9 % (11.5-14.0); TOTAL CELLS COUNTED % (AUTO) 100 %; WHITE BLOOD COUNT 7.3 10^3/uL (4.0-10.5)
[2018-11-22 13:51] LABS: ALANINE AMINOTRANSFERASE 52 U/L (21-72); ALBUMIN 4.1 g/dL (3.5-5.0); ALKALINE PHOSPHATASE 77 U/L (38-126); ASPARTATE AMINO TRANSFERASE 47 U/L (17-59); BILIRUBIN,DIRECT 0.3 mg/dL (0.0-0.4); BILIRUBIN,TOTAL 0.8 mg/dL (0.2-1.3); TOTAL PROTEIN 6.6 g/dL (6.3-8.2)
[2018-11-23 08:55] LABS: INTERNATIONAL RATION (INR) 7.01
[2018-11-23 08:56] LABS: PROTHROMBIN TIME 63.5 SEC (11.4-15.4)
== END ==
LOC: OD 13:07
PROVIDERS: ATTEND Specialist
DX: J44.9 Chronic obstructive pulmonary disease, unspecified (principal); I48.2 Chronic atrial fibrillation; I34.0 Nonrheumatic mitral (valve) insufficiency; I44.2 Atrioventricular block, complete; I10 Essential (primary) hypertension; Z95.0 Presence of cardiac pacemaker; I25.10 Atherosclerotic heart disease of native coronary artery without angina pectoris; R06.00 Dyspnea, unspecified; Z79.01 Long term (current) use of anticoagulants; F17.210 Nicotine dependence, cigarettes, uncomplicated; R94.5 Abnormal results of liver function studies; E78.49 Other hyperlipidemia
CPT/HCPCS: 36415; 80076; 85025; 85610

== ENCOUNTER → 2018-11-27 | Outpatient (CLI) | payer MEDICARE, OTHER ==
[2018-11-27 11:13] LABS: INTERNATIONAL RATION (INR) 0.95
[2018-11-27 11:19] LABS: PROTHROMBIN TIME 13.2 SEC (11.4-15.4)
== END ==
LOC: OD 09:46
PROVIDERS: ATTEND Specialist
DX: I48.2 Chronic atrial fibrillation (principal); Z79.01 Long term (current) use of anticoagulants
CPT/HCPCS: 36415; 85610

== ENCOUNTER → 2018-12-05 | Outpatient (CLI) | payer MEDICARE, OTHER ==
[2018-12-05 10:27] LABS: INTERNATIONAL RATION (INR) 3.05
== END ==
LOC: OD 09:44
PROVIDERS: ATTEND Internal Medicine
DX: I48.2 Chronic atrial fibrillation (principal); Z79.01 Long term (current) use of anticoagulants
CPT/HCPCS: 36415; 85610

== ENCOUNTER → 2018-12-19 | Outpatient (CLI) | payer MEDICARE, OTHER ==
[2018-12-19 09:39] LABS: INTERNATIONAL RATION (INR) 3.21; PROTHROMBIN TIME 34.3 SEC (11.4-15.4)
== END ==
LOC: OD 08:45
PROVIDERS: ATTEND Internal Medicine
DX: I48.2 Chronic atrial fibrillation (principal); Z79.01 Long term (current) use of anticoagulants
CPT/HCPCS: 36415; 85610

== ENCOUNTER → 2019-01-08 | Outpatient (CLI) | payer MEDICARE, OTHER ==
[2019-01-08 10:15] LABS: INTERNATIONAL RATION (INR) 2.22; PROTHROMBIN TIME 25.6 SEC (11.4-15.4)
== END ==
LOC: OD 08:36
PROVIDERS: ATTEND Internal Medicine
DX: I48.2 Chronic atrial fibrillation (principal); Z79.01 Long term (current) use of anticoagulants
CPT/HCPCS: 36415; 85610

== ENCOUNTER → 2019-01-22 | Outpatient (CLI) | payer MEDICARE, OTHER ==
[2019-01-22 09:13] LABS: PROTHROMBIN TIME 25.5 SEC (11.4-15.4)
== END ==
LOC: OD 08:39
PROVIDERS: ATTEND Internal Medicine
DX: I48.2 Chronic atrial fibrillation (principal); Z79.01 Long term (current) use of anticoagulants
CPT/HCPCS: 36415; 85610

== ENCOUNTER → 2019-02-06 | Outpatient (CLI) | payer MEDICARE, OTHER ==
[2019-02-06 14:01] LABS: INTERNATIONAL RATION (INR) 2.34; PROTHROMBIN TIME 26.8 SEC (11.4-15.4)
== END ==
LOC: OD 12:24
PROVIDERS: ATTEND Internal Medicine
DX: I48.2 Chronic atrial fibrillation (principal); Z79.01 Long term (current) use of anticoagulants
CPT/HCPCS: 36415; 85610

== ENCOUNTER → 2019-04-26 | Outpatient (CLI) | payer MEDICARE, OTHER ==
[2019-04-26 10:18] LABS: INTERNATIONAL RATION (INR) 1.76; PROTHROMBIN TIME 21.4 SEC (11.4-15.4)
== END ==
LOC: OD 08:34
PROVIDERS: ATTEND Internal Medicine
DX: I48.2 Chronic atrial fibrillation (principal); Z79.01 Long term (current) use of anticoagulants
CPT/HCPCS: 36415; 85610

== ENCOUNTER → 2019-05-11 | Outpatient (CLI) | payer MEDICARE, OTHER ==
[2019-05-11 11:47] LABS: INTERNATIONAL RATION (INR) 2.13; PROTHROMBIN TIME 24.2 SEC (11.4-15.4)
== END ==
LOC: OD 10:36
PROVIDERS: ATTEND Internal Medicine
DX: I48.2 Chronic atrial fibrillation (principal); Z79.01 Long term (current) use of anticoagulants
CPT/HCPCS: 36415; 85610

== ENCOUNTER 2019-05-31 21:17 | Inpatient (IN) | payer MEDICARE, OTHER ==
--- NOTE | 2019-05-31 21:22 | ER Document Report ---
ED General - General Stated Complaint: POSSIBLE STOKE SYMPTOMS Time Seen by Provider: 05/31/19 21:22 Primary Care Provider: MICHELLE PARSONS MD [ACTIVE STAFF] - Follow up as needed TRAVEL OUTSIDE OF THE [place]. IN LAST 30 DAYS: No - HPI Patient complains to provider of: Confusion Notes: Acute onset confusion approximately 2-1/2 hours ago. called first possible decreased movement in his left hand. Profound confusion. Patient does answer questions appropriately intermittently will follow commands, but then stops answering questions. Patient does answer my questions. Brought in for code stroke evaluation blood glucose 112, patient been to be found to be febrile 101.4 This is a lengthy history of COPD and cardiac pacemaker - Related Data Allergies/Adverse Reactions: No Known Allergies Allergy (Verified 01/13/17 14:22) Past Medical History - Social History Smoking Status: Current Every Day Smoker Family History: Reviewed & Not Pertinent - Past Medical History Cardiac Medical History: Reports: Hx Atrial Fibrillation, Hx Heart Attack - ? "10-20 years ago", Hx Hypertension Endocrine Medical History: Reports: Hx Diabetes Mellitus Type 2 Renal/ Medical History: Denies: Hx Peritoneal Dialysis Past Surgical History: Reports: Hx Appendectomy, Hx Cardiac Catheterization, Hx Cardiac Surgery - ablation, Hx Cholecystectomy, Hx Pacemaker, Other - TURP procedure December 2016 - Immunizations Hx Diphtheria, Pertussis, Tetanus Vaccination: Yes Review of Systems - Review of Systems Notes: REVIEW OF SYSTEMS: CONSTITUTIONAL: -fevers, -chills EENT: -eye pain, -difficulty swallowing, -nasal congestion CARDIOVASCULAR: -chest pain, -syncope. RESPIRATORY: positive cough, positive SOB GASTROINTESTINAL: -abdominal pain, -nausea, -vomiting, -diarrhea GENITOURINARY: -dysuria, -hematuria MUSCULOSKELETAL: -back pain, -neck pain SKIN: -rash or skin lesions. HEMATOLOGIC: -easy bruising or bleeding. LYMPHATIC: -swollen, enlarged glands. -neurologic symptoms ALL OTHER SYSTEMS REVIEWED AND NEGATIVE. Physical Exam - Vital signs Vitals: Resp Pulse Ox 16 90 L 05/31/19 21:28 05/31/19 21:28 - Notes Notes: PHYSICAL EXAMINATION: GENERAL: Appearing male, severe acute distress. HEAD: Atraumatic, normocephalic. EYES: Pupils equal round and reactive to light, extraocular movements intact, s clera anicteric, conjunctiva are normal. ENT: nares patent, oropharynx clear without exudates. Moist mucous membranes. NECK: Normal range of motion, supple without lymphadenopathy LUNGS: Diffuse rhonchi HEART: Regular rate and rhythm without murmurs ABDOMEN: Soft, nontender, normoactive bowel sounds. No guarding, no rebound. No masses appreciated. EXTREMITIES: Normal range of motion, no pitting or edema. No cyanosis. NEUROLOGICAL: Cranial nerves grossly intact. Normal speech, normal gait. Normal sensory and motor exams. PSYCH: Normal mood, normal affect. SKIN: Warm, Dry, normal turgor, no rashes or lesions noted. Course - Re-evaluation Re-evalutation: 05/31/19 23:19 78-year-old male presents altered mental status and fever. Initially brought in as code stroke. Patient's emergent head CT unremarkable. Patient found to have a left lobe pneumonia. Normal lactic acid. Patient given fluid resuscitation. Initiate antibiotic therapy as well blood cultures pending at this time. Patient has large bowel movement in the department. Will send stool cultures as well. Patient will require admission to the hospital for his altered mental status 05/31/19 23:23 - Vital Signs Vital signs: Temp Pulse Resp BP Pulse Ox 99.8 F 73 24 H 137/62 H 92 05/31/19 23:02 05/31/19 22:03 05/31/19 22:03 05/31/19 22:03 05/31/19 22:03 - Laboratory Result Diagrams: 05/31/19 21:54 05/31/19 21:54 Laboratory results interpreted by me: 05/31/19 05/31/19 21:54 21:54 Monocytes % 1.3 L BUN 29 H Creatinine 1.51 H Est GFR ( Amer) 54 L Est GFR (Non-Af Amer) 45 L - EKG Interpretation by Me Additional EKG results interpreted by me: 05/31/19 22:22 Paced rhythm ventricular paced rhythm, 70 bpm, no ST elevations or depressions, normal QTC Discharge - Discharge Clinical Impression: Encephalopathy Pneumonia Qualifiers: Pneumonia type: due to unspecified organism Laterality: left Lung location: lower lobe of lung Qualified Code(s): J18.1 - Lobar pneumonia, unspecified organism Disposition: ADMITTED INPATIENT Admitting Provider: Tamir (Hospitalist) Referrals: MICHELLE PARSONS MD [ACTIVE STAFF] - Follow up as needed
--- NOTE | 2019-05-31 21:39 | RADIOLOGY REPORT (SQ) ---
EXAM DESCRIPTION: CT HEAD WITHOUT IV CONTRAST COMPLETED DATE/TME: 05/31/2019 00:00 CLINICAL HISTORY: 78 years, Male, STROKE SX COMPARISON: Prior study from 03/03/2016 TECHNIQUE: Noncontrast CT of the head was performed. Coronal and sagittal reformations were acquired. Images stored on PACS. All CT scanners at this facility use dose modulation, iterative reconstruction, and/or weight based dosing when appropriate to reduce radiation dose to as low as reasonably achievable (ALARA). [facility]: Dose Right [facility]: CareDose [facility]: Dose Right [facility]: Teradose 4D [facility]: [employer] LIMITATIONS: None. FINDINGS: Evaluation of the brain parenchyma reveals mild periventricular and patchy subcortical white matter low attenuation. No acute intracranial hemorrhage, mass effect, or extra-axial fluid is seen. The ventricles and sulcal spaces are mildly enlarged. Globes and orbits show no acute abnormality. Paranasal sinuses and mastoid air cells are clear. No depressed skull fractures. Calcifications are noted about the parasellar carotid arteries. IMPRESSION: No acute intracranial abnormality. Mild chronic microvascular ischemic change and generalized atrophy. TECHNICAL DOCUMENTATION: Quality ID # 436: Final reports with documentation of one or more dose reduction techniques (e.g., Automated exposure control, adjustment of the mA and/or kV according to patient size, use of iterative reconstruction technique) copyright 2011 [employer]- All Rights Reserved
--- NOTE | 2019-05-31 21:48 | RADIOLOGY REPORT (SQ) ---
XR CHEST 1 VIEW EXAM DATE: 05/31/2019 12:00 AM CDT HISTORY: STROKE SX. COMPARISON: 07/20/2016 FINDINGS: The heart size is within normal limits. Patchy opacity in the lower lung zone the left lung. No pleural effusions or pneumothorax. The bony thorax is intact. Stable right chest wall pacemaker. IMPRESSION: Left lung opacity which may represent infection.
[2019-05-31 22:09] LABS: ABSOLUTE MONOCYTES (AUTO) 0.1 10^3/uL (0.1-1.4); ABSOLUTE NEUT (AUTO) 3.4 10^3/uL (1.7-8.2); BASOPHILS % (AUTO) 0.4 % (0-2); EOSINOPHILS % (AUTO) 0.4 % (0-6); HEMATOCRIT 42.3 % (37.9-51.0); HEMOGLOBIN 14.4 g/dL (13.5-17.0); LYMPHOCYTES % (AUTO) 22.9 % (13-45); MEAN CORPUSCULAR HEMOGLOBIN 32.7 pg (27.0-33.4); MEAN CORPUSCULAR HGB CONC 34.1 g/dL (32.0-36.0); MEAN CORPUSCULAR VOLUME 96 fl (80-97); MONOCYTES % (AUTO) 1.3 % (3-13); PLATELET COUNT 207 10^3/uL (150-450); RED CELL DISTRIBUTION WIDTH 13.5 % (11.5-14.0); TOTAL CELLS COUNTED % (AUTO) 100 %; WHITE BLOOD COUNT 4.6 10^3/uL (4.0-10.5)
[2019-05-31 22:31] LABS: ALANINE AMINOTRANSFERASE 42 U/L (21-72); ALBUMIN 4.1 g/dL (3.5-5.0); ALKALINE PHOSPHATASE 98 U/L (38-126); ANION GAP 8 (5-19); ASPARTATE AMINO TRANSFERASE 49 U/L (17-59); BILIRUBIN,DIRECT 0.3 mg/dL (0.0-0.4); BILIRUBIN,TOTAL 0.8 mg/dL (0.2-1.3); BLOOD UREA NITROGEN 29 mg/dL (7-20); CALCIUM 8.8 mg/dL (8.4-10.2); CARBON DIOXIDE 24 mmol/L (22-30); CHLORIDE 106 mmol/L (98-107); GLUCOSE 105 mg/dL (75-110); LIPASE 124.6 U/L (23-300); POTASSIUM 4.3 mmol/L (3.6-5.0); SODIUM 137.5 mmol/L (137-145)
[2019-05-31] MEDS ORDERED: CEFTRIAXONE 1 GM/D5W RTU 1 GM/50 ML RTUPB IV ONE (23:16)
[2019-05-31] MEDS ORDERED: AZITHROMYCIN INJ 500 MG VIAL IV ONE (23:16)
[2019-05-31] MEDS ORDERED: ACETAMINOPHEN 325 MG TABLET PO ONE (23:18)
[2019-05-31] MEDS ORDERED: HYDRALAZINE HCL INJ/PF 20 MG/1 ML SDV IV PRN (23:23)
[2019-05-31] MEDS ORDERED: IPRATROPIUM/ALBUTEROL 0.5-2.5 MG/3 ML AMPUL NEB PRN ×2 (23:23)
[2019-05-31] MEDS ORDERED: ACETAMINOPHEN 325 MG TABLET PO PRN (23:23)
[2019-05-31] MEDS ORDERED: NICOTINE 14 MG/24 HR PATCH.TD24 TD ONE (23:27)
[2019-05-31] MEDS ORDERED: METOPROLOL TARTRATE 50 MG TABLET PO ONE (23:45)
[2019-05-31] MEDS ORDERED: CEFTRIAXONE INJ 1000 MG VIAL ONE (23:56)
[2019-06-01] MEDS: NORMAL SALINE 1000 ML 1,000 ML IV SCH ×2 (00:09→06:33)
[2019-06-01] MEDS ORDERED: LORAZEPAM INJ 2 MG/1 ML VIAL IV ONE (00:30)
[2019-06-01] MEDS ORDERED: NORMAL SALINE 250 ML IV PRN ×6 (00:32→11:42)
[2019-06-01] MEDS ORDERED: PHYTONADIONE INJ 10 MG/1 ML AMPULE SUBCUT ONE (00:33)
[2019-06-01] MEDS ORDERED: FLUTICASONE NASAL SPRAY 50 MCG/SPRY 120 SPRAY/16 GM NASL ONE (00:45)
[2019-06-01] MEDS ORDERED: FLUTICASONE NASAL SPRAY 50 MCG/SPRY 120 SPRAY/16 GM ONE (00:54)
[2019-06-01 01:09] LABS: INTERNATIONAL RATION (INR) 4.35; PARTIAL THROMBOPLASTIN TIME 41.1 SEC (23.5-35.8); PROTHROMBIN TIME 42.8 SEC (11.4-15.4)
[2019-06-01] MEDS ORDERED: ROCURONIUM BROMIDE INJ 50 MG/5 ML VIAL IV ONE (01:18)
[2019-06-01] MEDS ORDERED: ETOMIDATE INJ/PF 20 MG/10 ML SDV IV ONE (01:18)
[2019-06-01] MEDS: DEXTROSE 5%-WATER 250 ML with NOREPINEPHRINE BITARTRATE 4 MG IV PRN ×4 (01:25→06:52)
[2019-06-01] MEDS ORDERED: PANTOPRAZOLE SODIUM 40 MG VIAL IV ONE (01:28)
[2019-06-01] MEDS ORDERED: PANTOPRAZOLE SODIUM 40 MG VIAL IV PRN (01:36)
[2019-06-01] MEDS ORDERED: PROPOFOL 1,000 MG/100 ML INFUS..BTL IV PRN (01:37)
[2019-06-01] MEDS ORDERED: FENTANYL CITRATE INJ/PF 100 MCG/2 ML AMPUL IV PRN (01:37)
[2019-06-01] MEDS ORDERED: NORMAL SALINE 1000 ML 1,000 ML IV ONE (01:43)
[2019-06-01] MEDS: IPRATROPIUM/ALBUTEROL 0.5-2.5 MG/3 ML AMPUL NEB SCH ×2 (02:00→08:55)
[2019-06-01] MEDS: CHLORPHENIRAMINE MALEATE 4 MG TABLET PO SCH ×3 (02:05→11:28)
[2019-06-01] MEDS ORDERED: MIDAZOLAM 2 MG/2 ML INJ IV ONE (02:05)
[2019-06-01 02:06] LABS: HEMATOCRIT 45.1 % (37.9-51.0); HEMOGLOBIN 14.8 g/dL (13.5-17.0); MEAN CORPUSCULAR HEMOGLOBIN 32.2 pg (27.0-33.4); MEAN CORPUSCULAR HGB CONC 32.9 g/dL (32.0-36.0); MEAN CORPUSCULAR VOLUME 98 fl (80-97); PLATELET COUNT 174 10^3/uL (150-450); RED CELL DISTRIBUTION WIDTH 13.4 % (11.5-14.0)
--- NOTE | 2019-06-01 02:13 | RADIOLOGY REPORT (SQ) ---
EXAM DESCRIPTION: XR CHEST 1 VIEW COMPLETED DATE/TME: 06/01/2019 00:00 CLINICAL HISTORY: 78 years, Male, ETT PLACEMENT COMPARISON: 05/31/2019 NUMBER OF VIEWS: One TECHNIQUE: AP view the chest LIMITATIONS: None. FINDINGS: The endotracheal tube terminates approximately 5.5 cm above the asher. A nasogastric tube traverses the thorax with its tip outside the [id number] but beneath the diaphragm. Again noted is a left basilar airspace opacity. The right lung is clear. The heart size is stable with a right chest wall pacemaker. There is no pneumothorax. IMPRESSION: Satisfactory position of the endotracheal and nasogastric tubes. copyright 2010 [employer]- All Rights Reserved
[2019-06-01] MEDS ORDERED: OXYMETAZOLINE HCL 0.05% NASAL SPRAY 15 ML BOTTLE ONE (02:41)
[2019-06-01] MEDS ORDERED: HYDROCORTISONE SOD SUCCINATE INJ/PF 100 MG/2 ML SDV IV ONE (02:56)
[2019-06-01] MEDS ORDERED: EPINEPHRINE INJ 1 MG/10 ML DISP.SYRIN IV ONE ×2 (03:00→03:04)
[2019-06-01] MEDS ORDERED: NORMAL SALINE 100 ML with PANTOPRAZOLE SODIUM 80 MG IV PRN ×2 (03:01)
[2019-06-01 03:06] LABS: PROTHROMBIN TIME 53.2 SEC (11.4-15.4)
[2019-06-01 03:07] LABS: INTERNATIONAL RATION (INR) 5.72
[2019-06-01] MEDS ORDERED: PHENYLEPHRINE HCL INJ/PF 10 MG/1 ML SDV ONE ×3 (03:13→10:12)
[2019-06-01 03:21] LABS: HEMATOCRIT 40.8 % (37.9-51.0); HEMOGLOBIN 13.1 g/dL (13.5-17.0); MEAN CORPUSCULAR HEMOGLOBIN 32.2 pg (27.0-33.4); MEAN CORPUSCULAR VOLUME 101 fl (80-97); PLATELET COUNT 152 10^3/uL (150-450); RED BLOOD COUNT 4.06 10^6/uL (4.35-5.55); RED CELL DISTRIBUTION WIDTH 13.7 % (11.5-14.0); WHITE BLOOD COUNT 6.7 10^3/uL (4.0-10.5)
[2019-06-01 03:41] LABS: ABSOLUTE LYMPHOCYTES# (MANUAL) 4.9 10^3/uL (0.5-4.7); ABSOLUTE MONOCYTES # (MANUAL) 0.5 10^3/uL (0.1-1.4); ANION GAP 15 (5-19); BAND NEUTROPHILS % (MANUAL) 2 % (3-5); BASOPHILS % (MANUAL) 0 % (0-2); BLOOD UREA NITROGEN 29 mg/dL (7-20); CALCIUM 8.4 mg/dL (8.4-10.2); CARBON DIOXIDE 20 mmol/L (22-30); CHLORIDE 107 mmol/L (98-107); EOSINOPHILS % (MANUAL) 2 % (0-6); GLUCOSE 143 mg/dL (75-110); MONOCYTES % (MANUAL) 7 % (3-13); POTASSIUM 3.5 mmol/L (3.6-5.0); RBC MORPHOLOGY COMMENT NORMO-CYTIC/CHROMIC; SEGMENTED NEUTROPHILS % (MAN) 16 % (42-78); SODIUM 142.2 mmol/L (137-145); TOTAL CELLS COUNTED 100
[2019-06-01 03:42] LABS: PLATELET COMMENT ADEQUATE
[2019-06-01 03:44] LABS: LYMPHOCYTES % (MANUAL) 73 % (13-45)
[2019-06-01] MEDS: DEXTROSE 5%-WATER 250 ML with PHENYLEPHRINE HCL 40 MG IV PRN ×6 (03:45→10:21)
--- NOTE | 2019-06-01 04:07 | PDOC H&P ---
History of Present Illness Admission Date/PCP: 06/01/19 00:13 Patient complains of: Altered mental status History of Present Illness: MICHELLE BENOIT is a 78 year old male with a past medical history of atrial fibrillation on Coumadin, status post permanent pacemaker placement, persistent tobacco dependence and recent weight loss. Patient presents with 6 hours of altered mental status shortness of breath and fever prompting evaluation in the emergency room. Is found to have a left lower lobe infiltrate, started on empiric antibiotics for pneumonia and referred to the hospitalist. Shortly before my evaluation patient develops massive hemoptysis, altered mental status and hypotension. He is intubated, started on levo fed and 2 L normal saline bolus, with OG aspiration of blood. Chest x-ray is reevaluated and suspicious for hemorrhage versus pneumonic process. ENT Dr. Randolph is consulted, FFP, vitamin K and Protonix, PT and INR ordered. Patient's is contacted and reveals recent supratherapeutic INR, evidence of blood on his clothing to suggest previous hemoptysis at least 12 hours prior to presentation. During ENT evaluation which is negative for oral pharyngeal source of bleeding patient develops massive hemoptysis and V. tach, chest c ompressions are initiated he receives 2 rounds of epinephrine resulting paced rhythm with blood pressure 90/60 on Levophed and Tanner-Synephrine. Patient's is now at bedside and updated as to grave prognosis. She agrees to chemical code only and requesting information shared with her exclusively. Patient remains in unstable critical condition unable to transfer to tertiary care and consideration of pulmonology or CT surgery consult. Total critical care time 90 minutes. Past Medical History Cardiac Medical History: Reports: Atrial Fibrillation, Myocardial Infarction - ? "10-20 years ago", Hypertension Endocrine Medical History: Reports: Diabetes Mellitus Type 2 Psychiatric Medical History: Reports: Tobacco Dependency Past Surgical History Past Surgical History: Reports: Appendectomy, Cardiac Catheterization, Cholecystectomy, Pacemaker, Other - TURP procedure December 2016 Social History Information Source: Patient Smoking Status: Current Every Day Smoker Frequency of Alcohol Use: None Hx Recreational Drug Use: No Hx Prescription Drug Abuse: No - Advance Directive Resuscitation Status: Chemical Code Only Family History Family History: Hypertension Parental Family History Reviewed: Yes Children Family History Reviewed: Yes Sibling(s) Family History Reviewed.: Yes Medication/Allergy Home Medications: Aspirin 81 mg PO DAILY 07/20/16 Atorvastatin Calcium [Lipitor 20 mg Tablet] 20 mg PO DAILY 07/20/16 Bethanechol Chloride 25 mg PO BID 07/20/16 Bimatoprost [Lumigan 0.01% Oph Soln 2.5 ml/Bottle] 1 drop BTH_EYE DAILY 07/20/16 Dutasteride [Avodart] 0.5 mg PO DAILY 07/20/16 Ergocalciferol (Vitamin D2) [Vitamin D] 1,000 unit PO DAILY 07/20/16 Finasteride 5 mg PO DAILY 07/20/16 Metoprolol Succinate 25 mg PO BID 07/20/16 Multivitamin [Multivitamins] 1 each PO DAILY 07/20/16 Tamsulosin HCl [Flomax 0.4 mg Cap.sr] 0.4 mg PO BID 07/20/16 Tramadol HCl 50 mg PO 6XD 07/20/16 Warfarin Sodium 5 mg PO DAILY 07/20/16 Nitroglycerin [Nitrostat 0.4 mg (1/150 Gr) Tabs 25/Bottle] 1 tab SL Q5MP PRN #1 bottle 07/21/16 Allergies/Adverse Reactions: No Known Allergies Allergy (Verified 01/13/17 14:22) Review of Systems ROS unobtainable: Due to mental status Physical Exam Vital Signs: Temp Pulse Resp BP Pulse Ox 99.8 F 80 18 88/61 L 96 05/31/19 23:02 06/01/19 03:20 06/01/19 03:20 06/01/19 03:20 06/01/19 01:20 Intake & Output 05/30/19 05/31/19 06/01/19 11:59 11:59 11:59 Intake Total 50 Balance 50 Weight 70.3 kg General appearance: PRESENT: disheveled, severe distress, thin Head exam: PRESENT: atraumatic, normocephalic Eye exam: PRESENT: conjunctiva pale, EOMI, PERRLA Ear exam: PRESENT: normal external ear exam Mouth exam: PRESENT: moist, tongue midline, other - Bright red blood about the m outh Teeth exam: PRESENT: edentulous Neck exam: ABSENT: carotid bruit, JVD, lymphadenopathy, thyromegaly Respiratory exam: PRESENT: accessory muscle use, crackles, prolonged expiratory phas, retraction, symmetrical, tachypnea. ABSENT: rales, rhonchi, wheezes Cardiovascular exam: PRESENT: +S1, +S2, tachycardia Pulses: PRESENT: normal dorsalis pedis pul Vascular exam: PRESENT: normal capillary refill GI/Abdominal exam: PRESENT: normal bowel sounds, soft. ABSENT: distended, guarding, mass, organolmegaly, rebound, tenderness Rectal exam: PRESENT: deferred Extremities exam: PRESENT: full ROM. ABSENT: calf tenderness, clubbing, pedal edema Neurological exam: ABSENT: alert, altered, awake, oriented to person, oriented to place, CN II-XII grossly intact Psychiatric exam: PRESENT: agitated Skin exam: PRESENT: dry, intact, warm. ABSENT: cyanosis, rash Results Laboratory Results: 06/01/19 02:16 05/31/19 05/31/19 05/31/19 21:54 21:54 21:54 WBC 4.6 RBC 4.40 Hgb 14.4 Hct 42.3 MCV 96 MCH 32.7 MCHC 34.1 RDW 13.5 Plt Count 207 Seg Neutrophils % 75.0 Lymphocytes % 22.9 Monocytes % 1.3 L Eosinophils % 0.4 Basophils % 0.4 Absolute Neutrophils 3.4 Absolute Lymphocytes 1.0 Absolute Monocytes 0.1 Absolute Eosinophils 0.0 Absolute Basophils 0.0 Sodium 137.5 Potassium 4.3 Chloride 106 Carbon Dioxide 24 Anion Gap 8 BUN 29 H Creatinine 1.51 H Est GFR ( Amer) 54 L Est GFR (Non-Af Amer) 45 L Glucose 105 Lactic Acid 1.8 Calcium 8.8 Total Bilirubin 0.8 AST 49 ALT 42 Alkaline Phosphatase 98 Total Protein 7.0 Albumin 4.1 Lipase 124.6 Blood Type Antibody Screen 06/01/19 06/01/19 06/01/19 00:50 00:50 02:16 WBC 4.0 6.7 RBC 4.60 4.06 L Hgb 14.8 13.1 L Hct 45.1 40.8 MCV 98 H 101 H MCH 32.2 32.2 MCHC 32.9 32.0 RDW 13.4 13.7 Plt Count 174 152 Seg Neutrophils % Not Reportable Lymphocytes % Not Reportable Monocytes % Not Reportable Eosinophils % Not Reportable Basophils % Not Reportable Absolute Neutrophils Not Reportable Absolute Lymphocytes Not Reportable Absolute Monocytes Not Reportable Absolute Eosinophils Not Reportable Absolute Basophils Not Reportable Sodium Potassium Chloride Carbon Dioxide Anion Gap BUN Creatinine Est GFR ( Amer) Est GFR (Non-Af Amer) Glucose Lactic Acid Calcium Total Bilirubin AST ALT Alkaline Phosphatase Total Protein Albumin Lipase Blood Type O POSITIVE Antibody Screen NEGATIVE 05/31/19 21:54 Troponin I 0.016 Impressions: Head CT 05/31/19 00:00 IMPRESSION: No acute intracranial abnormality. Mild chronic microvascular ischemic change and generalized atrophy. TECHNICAL DOCUMENTATION: Quality ID # [id number]: Final reports with documentation of one or more dose reduction techniques (e.g., Automated exposure control, adjustment of the mA and/or kV according to patient size, use of iterative reconstruction technique) copyright 2010 [employer]- All Rights Reserved Chest X-Ray 06/01/19 00:00 IMPRESSION: Satisfactory position of the endotracheal and nasogastric tubes. copyright 2011 [employer]- All Rights Reserved Assessment and Plan - Diagnosis (1) Pulmonary hemorrhage Is this a current diagnosis for this admission?: Yes Plan: Likely multifactorial secondary to supratherapeutic INR and occult malignancy. Continue FFP, vitamin K, packed red blood cell transfusion as needed. Consider transfer to tertiary care for consideration of pulmonology or CT surgery evalu ation. (2) Pneumonia Qualifiers: Pneumonia type: due to unspecified organism Laterality: left Lung location: lower lobe of lung Qualified Code(s): J18.1 - Lobar pneumonia, uns pecified organism Is this a current diagnosis for this admission?: Yes Plan: Complicated by pulmonary hemorrhage, continue Rocephin, azithromycin and ventilator support. (3) Respiratory failure Is this a current diagnosis for this admission?: Yes Plan: Secondary to #1 and 2, continue ventilator management with follow-up ABG (4) Shock circulatory Is this a current diagnosis for this admission?: Yes Plan: Secondary to #1, Levophed, Tanner-Synephrine, IV fluids, FFP and packed red blood cells PRN (5) Coagulopathy Is this a current diagnosis for this admission?: Yes Plan: Likely multifactorial secondary to supratherapeutic INR and DIC. FFP, vitamin K, transfuse packed red blood cells as needed (6) Encephalopathy Is this a current diagnosis for this admission?: Yes Plan: Secondary to acute illness, supportive measures - Time Time Spent with patient: 35 or more minutes - Inpatient Certification Medical Necessity: Need Close Monitoring Due to Risk of Patient Decompensation
--- NOTE | 2019-06-01 04:10 | ADVANCED CARE ---
- Diagnosis (1) Pulmonary hemorrhage Diagnosis Current: Yes (2) Pneumonia Diagnosis Current: Yes (3) Respiratory failure Diagnosis Current: Yes (4) Shock circulatory Diagnosis Current: Yes (5) Coagulopathy Diagnosis Current: Yes (6) Encephalopathy Diagnosis Current: Yes Resuscitation Status: Chemical Code Only Discussion: 30-minute [id number] discussion with patients regarding his wishes. Formally full code agreeing to chemical code only at present. Care Planning Goals: Reevaluation with stabilization Document(s) Completed: H&P, critical care note, ACP Time Spent: 30 minutes
[2019-06-01 05:37] LABS: CREATINE KINASE MB 2.33 ng/mL (<4.55)
[2019-06-01 05:48] LABS: TROPONIN I 0.171 ng/mL
[2019-06-01] MEDS: HEPARIN SOD (PORCINE) 5,000 UNIT/ML 1 ML SYRINGE SUBCUT SCH ×2 (05:54→13:17)
[2019-06-01] MEDS ORDERED: NOREPINEPHRINE BITARTRATE INJ/PF 4 MG/4 ML SDV IV ONE ×2 (06:43→10:57)
[2019-06-01 07:14] LABS: APPEARANCE,URINE SLIGHTLY-CLOUDY; BILIRUBIN,URINE NEGATIVE (NEGATIVE); CALCIUM OXALATE CRYSTALS,URINE FEW /HPF; COLOR,URINE YELLOW; GLUCOSE, URINE NEGATIVE (NEGATIVE); KETONES,URINE TRACE mg/dL (NEGATIVE); LEUKOCYTE ESTERASE,URINE NEGATIVE (NEGATIVE); NITRITE,URINE NEGATIVE (NEGATIVE); PROTEIN,URINE NEGATIVE (NEGATIVE); URINE SPECIFIC GRAVITY 1.017; UROBILINOGEN,URINE NEGATIVE mg/dL (<2.0)
--- NOTE | 2019-06-01 08:10 | CONSULTATION REPORT E ---
Consultation Report NAME: MICHELLE BENOIT : 1940 AGE: 78Y DATE: 05/31/2019 ROOM: ED12 A TO: TAYA DICKSON D.O. FROM: MICHELLE SANTOS M.D., hospitalist for [facility] Requesting Physician REASON FOR CONSULTATION: Consult request was for a 78-year-old white male who [facility] [place] [facility] with [facility] with hemoptysis. HISTORY OF PRESENT ILLNESS: This is a 78-year-old white male with cardiac history with a pacemaker and history of AFib, currently taking Coumadin with current INR of greater than 4. Discussion with Dr. Santos and the patient's daughter who was bedside in the room was for the patient being confused today while at home and where he was found to have been sitting in his car for approximately 1 hour and was noted to be confused and shivering. There was no coughing at that time. 911 was contacted and the patient was brought in for evaluation. Once in the ER the patient began coughing and was reported to be bringing up large amounts of mucus. This was followed by continued coughing and active bleeding then being noted. It was unsure as to the exact source of the active bleeding. The patient was intubated. Chest x-ray confirmed a left lobe consolidation/infiltrate. The patient had a nasogastric tube placed with brown/clotted-type material being suctioned. There was no active bleeding noted to be coming from the patient's nose or mouth at any point. Nursing staff reported that the patient had had multiple bowel movements with no bright red blood or black tarry stools being noted. The patient's daughter reported no history of recurrent pneumonias. She did say that he had been a long-term smoker and still currently smokes. She said there was no history of head or neck cancers. PAST MEDICAL HISTORY: Same as above and was reviewed with the patient's daughter. PAST SURGICAL HISTORY: Noncontributory. SOCIAL HISTORY: The patient lives at home. The patient is a long-term smoker and current active smoker. MEDICATIONS: Coumadin, otherwise please refer to the patient's ER record. REVIEW OF SYSTEMS: CONSTITUTIONAL: Same as above, and the patient was noted to have chills earlier in the day. HEENT: Same as above. CARDIAC: History of pacemaker and AFib, currently taking Coumadin. RESPIRATORY/PULMONARY: Same as above. GASTROINTESTINAL: Reviewed. GENITOURINARY: Noncontributory. DERMATOLOGIC: Patient with history of skin cancer. ALLERGY/IMMUNOLOGY: Reviewed. HEMATOLOGY/ONCOLOGY: The patient is taking Coumadin for AFib. MUSCULOSKELETAL: Noncontributory. PHYSICAL EXAMINATION: GENERAL: The patient was present in emergency room 12 lying on the hospital bed and sedated and intubated with his daughter and granddaughter bedside. HEAD: Normocephalic, atraumatic. EYES: Closed. EARS: Right EAC and tympanic membrane were unremarkable, intact, and no middle ear effusion was present. Left EAC was only partially visualized due to the patient being in a head neutral position and intubated, and the tympanic membrane could not be visualized. NOSE: Left nasal passage was unremarkable, nasal septal deviation was noted, right nasal passage was notable for prominent vessels at Little area, but there was no active bleeding/bright red blood or blood clots noted in either nasal passage. ORAL CAVITY/OROPHARYNX: The patient was noted to be edentulous with the endotracheal tube and the nasogastric tube being in stable position transorally and in the midline. The nasogastric tube was taped to the endotracheal tube. The posterior oral cavity/oropharynx was full of dark blood with no active bleeding/bright red blood being noted. NECK: Supple with no obvious masses noted. At this point nursing staff was in the room and was preparing to hang blood products. The nasogastric tube was untaped from the endotracheal tube and placed to suction with gentle rotation of the tube to check for return of gastric contents/possible blood. During this process the patient was noted to go into an unstable rhythm and CPR was initiated with ER staff in the room. Dr. Santos entered and was bedside as well during the CPR process, which lasted less than 5 minutes. Epinephrine was administered during this time. There was severe bright red bleeding occurring into the patient's endotracheal tube and ventilator circuit. During this process there was no bright red bleeding noted at the patient's nose or mouth. The patient was noted to have a pulse and CPR was stopped. At this point additional lab work results were available, and the INR was now up over 5. Discussion was held with Dr. Santos with concern for additional bleeding if endoscopic evaluation were attempted. The decision was made to not perform endoscopic evaluation at this time as all bright red bleeding was confined to the patient's endotracheal tube and ventilator circuit. At this point the ENT consult was terminated. ENT remains available otherwise as needed, which Dr. Santos voiced an understanding of and agreed with. DICTATING PHYSICIAN: TAYA DICKSON D.O. [id number] PHY#: [id number] ID: [id number] JOB#: [id number] ACCT: [id number] cc:TAYA DICKSON D.O. >
[2019-06-01] MEDS ORDERED: VASOPRESSIN INJ 20 UNIT/1 ML VIAL ONE (08:28)
--- NOTE | 2019-06-01 09:10 | RADIOLOGY REPORT (SQ) ---
EXAM DESCRIPTION: CHEST SINGLE VIEW COMPLETED DATE/TIME: 06/01/2019 9:01 am REASON FOR STUDY: ETT placement COMPARISON: 06/01/2019 EXAM PARAMETERS: NUMBER OF VIEWS: One view. TECHNIQUE: Single frontal radiographic view of the chest acquired. RADIATION DOSE: NA LIMITATIONS: None. FINDINGS: Stable AP portable examination with extensive heterogeneous pulmonary opacity of the left lung. Unchanged support apparatus. IMPRESSION: Stable AP portable examination with extensive heterogeneous pulmonary opacity of the lef t lung. Unchanged support apparatus. TECHNICAL DOCUMENTATION: JOB ID: [id number] [employer]- All Rights Reserved Reading location - IP/workstation name: [email or web address]
[2019-06-01 09:12] LABS: ARTERIAL BLOOD BASE EXCESS -25.3 mmol/L; ARTERIAL BLOOD FIO2 100%; ARTERIAL BLOOD H2CO3 2.09 mmol/L (1.05-1.35); ARTERIAL BLOOD HCO3 9.9 mmol/L (20-24); ARTERIAL BLOOD O2 SATURATION 94.9 % (94-98)
[2019-06-01 09:14] LABS: ARTERIAL BLOOD PCO2 69.6 mmHg (35-45); ARTERIAL BLOOD PH 6.77 (7.35-7.45)
[2019-06-01] MEDS ORDERED: SODIUM BICARBONATE 8.4% INJ 50 MEQ/50 ML DISP.SYRIN ONE ×2 (09:16→10:57)
[2019-06-01] MEDS ORDERED: DEXTROSE 5%-WATER 1000 ML 1,000 ML with SODIUM BICARBONATE 150 MEQ IV PRN ×2 (09:23)
[2019-06-01] MEDS ORDERED: DEXTROSE 5%-WATER 250 ML with VASOPRESSIN 100 UNIT IV PRN ×2 (09:31)
[2019-06-01] MEDS ORDERED: SODIUM BICARBONATE 8.4% INJ 50 MEQ/50 ML DISP.SYRIN IV PRN (09:32)
[2019-06-01 09:33] LABS: INTERNATIONAL RATION (INR) 4.14; PROTHROMBIN TIME 41.1 SEC (11.4-15.4)
[2019-06-01 09:50] LABS: PARTIAL THROMBOPLASTIN TIME 108.5 SEC (23.5-35.8)
[2019-06-01 10:00] LABS: CREATINE KINASE MB 16.5 ng/mL (<4.55)
[2019-06-01] MEDS ORDERED: METOPROLOL TARTRATE 50 MG TABLET PO SCH (10:00)
[2019-06-01] MEDS ORDERED: FLUTICASONE NASAL SPRAY 50 MCG/SPRY 120 SPRAY/16 GM NASL SCH (10:00)
[2019-06-01] MEDS ORDERED: CEFTRIAXONE 1 GM/D5W RTU 1 GM/50 ML RTUPB IV SCH (10:00)
[2019-06-01] MEDS ORDERED: CEFTRIAXONE SODIUM 1,000 MG in DEXTROSE 5%-WATER 50 ML IV SCH (10:00)
[2019-06-01 10:09] LABS: TROPONIN I 0.284 ng/mL
[2019-06-01] MEDS ORDERED: NORMAL SALINE INJ/PF 0.9% 10 ML SDV IV PRN (10:53)
[2019-06-01] MEDS ORDERED: EPINEPHRINE INJ 1 MG/10 ML DISP.SYRIN ONE (10:57)
[2019-06-01 11:11] LABS: ARTERIAL BLOOD BASE EXCESS -19.8 mmol/L; ARTERIAL BLOOD H2CO3 1.61 mmol/L (1.05-1.35); ARTERIAL BLOOD HCO3 11.8 mmol/L (20-24); ARTERIAL BLOOD O2 SATURATION 92.2 % (94-98); ARTERIAL BLOOD PCO2 53.4 mmHg (35-45); ARTERIAL BLOOD PO2 96.7 mmHg (80-100); ARTERIAL BLOOD TOTAL CO2 13.4 mmol/L (23-27)
[2019-06-01 11:32] LABS: ARTERIAL BLOOD FIO2 100%
[2019-06-01 11:34] LABS: ARTERIAL BLOOD PH 6.96 (7.35-7.45)
--- NOTE | 2019-06-01 11:41 | RADIOLOGY REPORT (SQ) ---
EXAM DESCRIPTION: CHEST SINGLE VIEW COMPLETED DATE/TIME: 06/01/2019 10:59 am REASON FOR STUDY: central line placement COMPARISON: CT angio chest 07/20/2016 Chest films 05/31/2019, 06/01/2019 EXAM PARAMETERS: NUMBER OF VIEWS: One view. TECHNIQUE: Single frontal radiographic view of the chest acquired. RADIATION DOSE: NA LIMITATIONS: None. FINDINGS: LUNGS AND PLEURA: Dense airspace disease is present throughout the left lower lobe, pneumo mor versus asymmetric pulmonary edema. There is now patchy airspace disease in the right medial lung base and right perihilar region, pneumo mor versus pulmonary edema. This is increased compared to 05/31/2019. No gross pneumothorax. Question trace left pleural effusion 1.5 cm bulla or bleb posterior left lung base unchanged from CT 07/20/2016. MEDIASTINUM AND HILAR STRUCTURES: No masses. Contour normal. HEART AND VASCULAR STRUCTURES: Heart normal in size. Normal vasculature. BONES: No acute findings. HARDWARE: Endotracheal tube tip 6 to 7 cm above the asher. Right jugular central line tip in the marsh perior vena cava. Right-sided dual lead pacemaker. OTHER: No other significant finding. IMPRESSION: Diffuse bilateral airspace disease left greater than right increasing compared to prior studies. Findings are worrisome for increasing bilateral pulmonary edema or pneumonia. TECHNICAL DOCUMENTATION: JOB ID: [id number] [employer]- All Rights Reserved Reading location - IP/workstation name: [email or web address]
[2019-06-01 12:13] LABS: PATH REVIEW PATHOLOGIST REVIEWED
[2019-06-01 12:36] LABS: ANION GAP 13 (5-19); BLOOD UREA NITROGEN 27 mg/dL (7-20); CARBON DIOXIDE 16 mmol/L (22-30); CHLORIDE 109 mmol/L (98-107); CREATINE KINASE 1509 U/L (55-170); GLUCOSE 137 mg/dL (75-110); POTASSIUM 4.2 mmol/L (3.6-5.0); SODIUM 138.4 mmol/L (137-145)
[2019-06-01 12:47] LABS: CALCIUM 6.5 mg/dL (8.4-10.2)
[2019-06-01 12:51] LABS: HEMATOCRIT 29.7 % (37.9-51.0); MEAN CORPUSCULAR HEMOGLOBIN 31.9 pg (27.0-33.4); MEAN CORPUSCULAR HGB CONC 31.4 g/dL (32.0-36.0); MEAN CORPUSCULAR VOLUME 102 fl (80-97); RED BLOOD COUNT 2.92 10^6/uL (4.35-5.55); RED CELL DISTRIBUTION WIDTH 15.4 % (11.5-14.0); WHITE BLOOD COUNT 3.2 10^3/uL (4.0-10.5)
--- NOTE | 2019-06-01 13:10 | RADIOLOGY REPORT (SQ) ---
EXAM DESCRIPTION: U/S CHEST COMPLETED DATE/TIME: 06/01/2019 12:58 pm REASON FOR STUDY: RULE OUT LEFT HEMOTHORAX COMPARISON: Chest films 06/01/2019 TECHNIQUE: Ultrasound of the left chest was performed portably in the ICU, to evaluate for pleural e ffusion LIMITATIONS: None. FINDINGS: No left pleural effusion is identified. Results discussed with Dr. Finnegan IMPRESSION: No left pleural effusion TECHNICAL DOCUMENTATION: JOB ID: [id number] [employer]- All Rights Reserved Reading location - IP/workstation name: [email or web address]
[2019-06-01] MEDS ORDERED: ACETAMINOPHEN 325 MG TABLET PO PRN (13:21)
[2019-06-01 13:27] LABS: ABSOLUTE LYMPHOCYTES# (MANUAL) 2.3 10^3/uL (0.5-4.7); ABSOLUTE MONOCYTES # (MANUAL) 0.4 10^3/uL (0.1-1.4); BASOPHILS % (MANUAL) 0 % (0-2); EOSINOPHILS % (MANUAL) 1 % (0-6); LYMPHOCYTES % (MANUAL) 72 % (13-45); MONOCYTES % (MANUAL) 12 % (3-13); NUCLEATED RED BLOOD CELLS 3 /100 WBC (0); SEGMENTED NEUTROPHILS % (MAN) 15 % (42-78); TOTAL CELLS COUNTED 100
[2019-06-01 13:29] LABS: ANISOCYTOSIS SLIGHT; OVALOCYTES SLIGHT; PLATELET COMMENT ADEQUATE; PLATELET LARGE PRESENT
[2019-06-01 13:31] LABS: HEMOGLOBIN 9.3 g/dL (13.5-17.0)
[2019-06-01 13:32] LABS: PLATELET COUNT 85 10^3/uL (150-450)
--- NOTE | 2019-06-01 13:39 | Operative Report ---
Operative Report DATE OF SURGERY: 06/01/19 Operative Report: r inginal area prepped and draped steril fashion;2cc 2%epi/w/o loacally the under U Soud guidance 20g arrow arterial cath inserted into r femoral artery good arterial wave form good blood return PREOPERATIVE DIAGNOSIS: shock POSTOPERATIVE DIAGNOSIS: same OPERATION: r femoral arterial-line insertion SURGEON: DAFNE LUCERO ANESTHESIA: GA TISSUE REMOVED OR ALTERED: na COMPLICATIONS: 0cc
[2019-06-01] MEDS ORDERED: LORAZEPAM INJ 2 MG/1 ML VIAL IV PRN (13:48)
[2019-06-01] MEDS ORDERED: MORPHINE SULFATE 10 MG/ML INJ IV PRN ×2 (13:48)
[2019-06-01] MEDS ORDERED: MORPHINE SULFATE 10 MG/ML INJ IV ONE (14:00)
[2019-06-01 16:16] VITALS: BP 105/51
--- NOTE | 2019-06-01 21:00 | PDOC PROGRESS REPORT ---
Subjective Progress Note for:: 06/01/19 Subjective:: The patient was transferred to the ICU from the emergency department. Despite IV fluids and maximal doses of levo fed and Tanner-Synephrine the patient required the addition of vasopressin. Reason For Visit: COPD EXACERBATION PNEUMONIA Physical Exam Vital Signs: Temp Pulse Resp BP Pulse Ox 92.8 F L 71 24 H 94/73 L 67 L 06/01/19 12:24 06/01/19 12:29 06/01/19 12:24 06/01/19 12:24 06/01/19 12:24 Intake & Output 05/31/19 06/01/19 06/02/19 06:59 06:59 06:59 Intake Total 3479 233 Output Total 10 550 Balance 3469 -317 Weight 70.3 kg 70.4 kg General appearance: PRESENT: well-developed, other - Obtunded Head exam: PRESENT: atraumatic, normocephalic Mouth exam: PRESENT: other - Mixed saliva and dark blood regurgitated into the back of the throat. Bright red blood in the endotracheal tube. Respiratory exam: PRESENT: decreased breath sounds - On the left, rhonchi - Rhonchi at the left base, symmetrical, other - Without any sedation the patient is completely ventilator dependent. ABSENT: rales, tachypnea, wheezes Cardiovascular exam: PRESENT: +S1, +S2, tachycardia GI/Abdominal exam: PRESENT: diminished bowel sounds, soft. ABSENT: distended Rectal exam: PRESENT: deferred Gentrourinary exam: PRESENT: indwelling catheter Extremities exam: ABSENT: pedal edema Neurological exam: PRESENT: other - Obtunded Skin exam: PRESENT: pallor, other - Fingers and toes are cool and beginning to get dusky Results Laboratory Results: 06/01/19 12:43 06/01/19 11:34 05/31/19 05/31/19 05/31/19 21:54 21:54 21:54 WBC 4.6 RBC 4.40 Hgb 14.4 Hct 42.3 MCV 96 MCH 32.7 MCHC 34.1 RDW 13.5 Plt Count 207 Seg Neutrophils % 75.0 Lymphocytes % 22.9 Monocytes % 1.3 L Eosinophils % 0.4 Basophils % 0.4 Absolute Neutrophils 3.4 Absolute Lymphocytes 1.0 Absolute Monocytes 0.1 Absolute Eosinophils 0.0 Absolute Basophils 0.0 Carbonic Acid HCO3/H2CO3 Ratio ABG pH ABG pCO2 ABG pO2 ABG HCO3 ABG O2 Saturation ABG Base Excess FiO2 Sodium 137.5 Potassium 4.3 Chloride 106 Carbon Dioxide 24 Anion Gap 8 BUN 29 H Creatinine 1.51 H Est GFR ( Amer) 54 L Est GFR (Non-Af Amer) 45 L Glucose 105 Lactic Acid 1.8 Calcium 8.8 Magnesium Total Bilirubin 0.8 AST 49 ALT 42 Alkaline Phosphatase 98 Total Protein 7.0 Albumin 4.1 Lipase 124.6 Urine Color Urine Appearance Urine pH Ur Specific [place] Urine Protein Urine Glucose (UA) Urine Ketones Urine Blood Urine Nitrite Ur Leukocyte Esterase Urine WBC (Auto) Urine RBC (Auto) Blood Type Antibody Screen 06/01/19 06/01/19 06/01/19 00:50 00:50 02:16 WBC 4.0 6.7 RBC 4.60 4.06 L Hgb 14.8 13.1 L Hct 45.1 40.8 MCV 98 H 101 H MCH 32.2 32.2 MCHC 32.9 32.0 RDW 13.4 13.7 Plt Count 174 152 Seg Neutrophils % Not Reportable Lymphocytes % Not Reportable Monocytes % Not Reportable Eosinophils % Not Reportable Basophils % Not Reportable Absolute Neutrophils Not Reportable Absolute Lymphocytes Not Reportable Absolute Monocytes Not Reportable Absolute Eosinophils Not Reportable Absolute Basophils Not Reportable Carbonic Acid HCO3/H2CO3 Ratio ABG pH ABG pCO2 ABG pO2 ABG HCO3 ABG O2 Saturation ABG Base Excess FiO2 Sodium Potassium Chloride Carbon Dioxide Anion Gap BUN Creatinine Est GFR ( Amer) Est GFR (Non-Af Amer) Glucose Lactic Acid Calcium Magnesium Total Bilirubin AST ALT Alkaline Phosphatase Total Protein Albumin Lipase Urine Color Urine Appearance Urine pH Ur Specific [place] Urine Protein Urine Glucose (UA) Urine Ketones Urine Blood Urine Nitrite Ur Leukocyte Esterase Urine WBC (Auto) Urine RBC (Auto) Blood Type O POSITIVE Antibody Screen NEGATIVE 06/01/19 06/01/19 06/01/19 02:16 07:00 09:00 WBC Cancelled RBC Cancelled Hgb Cancelled Hct Cancelled MCV Cancelled MCH Cancelled MCHC Cancelled RDW Cancelled Plt Count Cancelled Seg Neutrophils % Lymphocytes % Monocytes % Eosinophils % Basophils % Absolute Neutrophils Absolute Lymphocytes Absolute Monocytes Absolute Eosinophils Absolute Basophils Carbonic Acid HCO3/H2CO3 Ratio ABG pH ABG pCO2 ABG pO2 ABG HCO3 ABG O2 Saturation ABG Base Excess FiO2 Sodium 142.2 Potassium 3.5 L Chloride 107 Carbon Dioxide 20 L Anion Gap 15 BUN 29 H Creatinine 1.96 H Est GFR ( Amer) 40 L Est GFR (Non-Af Amer) 33 L Glucose 143 H Lactic Acid Calcium 8.4 Magnesium Total Bilirubin AST ALT Alkaline Phosphatase Total Protein Albumin Lipase Urine Color YELLOW Urine Appearance SLIGHTLY-CLOUDY Urine pH 5.0 Ur Specific [place] 1.017 Urine Protein NEGATIVE Urine Glucose (UA) NEGATIVE Urine Ketones TRACE H Urine Blood NEGATIVE Urine Nitrite NEGATIVE Ur Leukocyte Esterase NEGATIVE Urine WBC (Auto) 1 Urine RBC (Auto) 3 Blood Type Antibody Screen 06/01/19 06/01/19 06/01/19 09:00 09:08 10:33 WBC RBC Hgb Hct MCV MCH MCHC RDW Plt Count Seg Neutrophils % Lymphocytes % Monocytes % Eosinophils % Basophils % Absolute Neutrophils Absolute Lymphocytes Absolute Monocytes Absolute Eosinophils Absolute Basophils Carbonic Acid 2.09 H 1.61 H HCO3/H2CO3 Ratio 4:1 7:1 ABG pH 6.77 L* 6.96 L* ABG pCO2 69.6 H* 53.4 H ABG pO2 138.0 H 96.7 ABG HCO3 9.9 L 11.8 L ABG O2 Saturation 94.9 92.2 L ABG Base Excess -25.3 -19.8 FiO2 100% 100% Sodium Cancelled Potassium Cancelled Chloride Cancelled Carbon Dioxide Cancelled Anion Gap Cancelled BUN Cancelled Creatinine Cancelled Est GFR ( Amer) Cancelled Est GFR (Non-Af Amer) Cancelled Glucose Cancelled Lactic Acid Calcium Cancelled Magnesium Cancelled Total Bilirubin AST ALT Alkaline Phosphatase Total Protein Albumin Lipase Urine Color Urine Appearance Urine pH Ur Specific [place] Urine Protein Urine Glucose (UA) Urine Ketones Urine Blood Urine Nitrite Ur Leukocyte Esterase Urine WBC (Auto) Urine RBC (Auto) Blood Type Antibody Screen 06/01/19 06/01/19 11:34 12:43 WBC 3.2 L RBC 2.92 L Hgb 9.3 L D Hct 29.7 L MCV 102 H MCH 31.9 MCHC 31.4 L RDW 15.4 H Plt Count 85 L Seg Neutrophils % Not Reportable Lymphocytes % Not Reportable Monocytes % Not Reportable Eosinophils % Not Reportable Basophils % Not Reportable Absolute Neutrophils Not Reportable Absolute Lymphocytes Not Reportable Absolute Monocytes Not Reportable Absolute Eosinophils Not Reportable Absolute Basophils Not Reportable Carbonic Acid HCO3/H2CO3 Ratio ABG pH ABG pCO2 ABG pO2 ABG HCO3 ABG O2 Saturation ABG Base Excess FiO2 Sodium 138.4 Potassium 4.2 Chloride 109 H Carbon Dioxide 16 L Anion Gap 13 BUN 27 H Creatinine 2.64 H Est GFR ( Amer) 29 L Est GFR (Non-Af Amer) 24 L Glucose 137 H Lactic Acid Calcium 6.5 L* Magnesium 2.1 Total Bilirubin AST ALT Alkaline Phosphatase Total Protein Albumin Lipase Urine Color Urine Appearance Urine pH Ur Specific [place] Urine Protein Urine Glucose (UA) Urine Ketones Urine Blood Urine Nitrite Ur Leukocyte Esterase Urine WBC (Auto) Urine RBC (Auto) Blood Type Antibody Screen 05/31/19 22:25 Sputum Gram Stain - Final 05/31/19 22:25 Sputum Sputum Culture - Final 05/31/19 06/01/19 06/01/19 21:54 02:16 02:16 Creatine Kinase 70 CK-MB (CK-2) Cancelled Troponin I 0.016 Cancelled 06/01/19 06/01/19 06/01/19 05:00 09:00 09:00 Creatine Kinase Cancelled CK-MB (CK-2) 2.33 16.50 H Troponin I 0.171 0.284 06/01/19 11:34 Creatine Kinase 1509 H CK-MB (CK-2) Troponin I Impressions: Head CT 05/31/19 00:00 IMPRESSION: No acute intracranial abnormality. Mild chronic microvascular ischemic change and generalized atrophy. TECHNICAL DOCUMENTATION: Quality ID # [id number]: Final reports with documentation of one or more dose reduction techniques (e.g., Automated exposure control, adjustment of the mA and/or kV according to patient size, use of iterative reconstruction technique) copyright 2011 [employer]- All Rights Reserved Chest X-Ray 06/01/19 10:20 IMPRESSION: Diffuse bilateral airspace disease left greater than right increasing compared to prior studies. Findings are worrisome for increasing bilateral pulmonary edema or pneumonia. Chest Ultrasound 06/01/19 12:17 IMPRESSION: No left pleural effusion Assessment and Plan - Diagnosis (1) Pulmonary hemorrhage Is this a current diagnosis for this admission?: Yes Plan: 06/01/2019-while in the emergency department the patient had received 1 unit of packed red blood cells as well as 2 units of fresh frozen plasma and vitamin K for the supratherapeutic INR on warfarin. Imaging revealed dense parenchymal changes consistent with pulmonary hemorrhage. No pleural effusion was identif ied. Repeat INR was still greater than 4 and so 2 more units of fresh frozen plasma were ordered stat repeat CBC did not show marked decrease after the 1 unit of packed cells and fluid and so no further packed red blood cells were ordered at this time. The volume of blood coming from the endotracheal tube had slowed somewhat. The patient was regurgitating some blood in saliva that was suctioned from the posterior pharynx. I did have to pull back on the endotracheal tube several centimeters and confirmed the repositioning with x- ray. (2) Shock circulatory Is this a current diagnosis for this admission?: Yes Plan: 06/01/2019-shortly after arriving to the intensive care unit, the patient's blood pressure continued to deteriorate. Despite 2 vasopressors and 2 L of fluid running we could not keep the mean arterial pressure above 65 and so a third pressor was added. The patient was now on Levophed, Tanner-Synephrine and v asopressin. After the 2 units of saline were completed the patient was given another liter of saline and had bicarbonate infusion running as well. We will try to titrate the pressors for a mean arterial pressure of 70. (3) Respiratory failure Qualifiers: Chronicity: acute Respiratory failure complication: hypoxia and hypercapnia Qualified Code(s): J96.01 - Acute respiratory failure with hypoxia; J96.02 - Acute respiratory failure with hypercapnia Is this a current diagnosis for this admission?: Yes Plan: 06/01/2019-despite being intubated the loss of the functioning lung tissue subsequent to the pulmonary hemorrhage caused significant respiratory acidosis. The pH was 6.96 after a bolus of bicarbonate. The serum bicarbonate was only 11.8. As noted above continuous infusion was initiated. In addition the respiratory rate and tidal volume were increased. Unfortunately the patient continues to need FiO2 of 100%. (4) Coagulopathy Is this a current diagnosis for this admission?: Yes Plan: 06/01/2019-as noted above the patient's INR was still elevated after 2 units of FFP and a dose of vitamin K. 2 additional units of FFP have been ordered. - Time Total Critical Time (Minutes): 80 Medications reviewed and adjusted accordingly: Yes - Plan Summary Plan Summary: The mother was able to have the first discussion with the family at the bedside. The patient's and granddaughter were present. I reviewed the current status regarding the ventilator and the severe acidosis caused by reduction of the functioning lung tissue due to hemorrhage and the fact that he had underlying COPD and still smoked. We reviewed the need for vasopressors in the significant doses required just to try to maintain a blood pressure of 100. We reviewed the adverse effects of vasopressors after prolonged use. After the first discussion the family proceeded to the waiting room. Further evaluation of the patient revealed that his color was now and ashen [place]ales. He was maxed out on 3 vasopressors and receiving 2 infusions of intravenous fluid. The FiO2 is 100% and his pulse oximetry was declining and had dropped below 70%. I immediately went to the waiting room and gather the family in a small conference room. I reviewed the patient's current condition and the futility of our efforts. The patient's family was upset but the patient's remained in some degree of denial. The family tried to console her and help her to understand the predicament. I then explained the mechanism of comfort measures only. I reviewed withdrawing medications as well as ventilatory support. I reviewed aggressive use of analgesia and anxiolytic medications. I also explained that in his current state once he is terminally extubated his life expectancy is less than 60 min utes. The family did ask if they could be present in the room when the patient is extubated. I certainly advised them that it is a very difficult situation but if that was the request that would be honored. I spoke to the patient's daughter outside of the conference room. We discussed her mother's denial at the current situation. They left it for the family to discuss and when a conclusion was reached they should let myself or the nurse know. After approximately 20 minutes the patient's daughter made me aware of the fact that the patient's mother had conceded to the fact that the aggressive measures were futile and the patient was going to regardless. They then opted for comfort measures only. Our plan is to premedicate the patient with morphine prior to removing all medications and terminally extubating the patient and then quickly allow the family to be at the bedside due to the shortened life expectancy. Approximately 80 minutes were spent between bedside care and family discussions.
--- NOTE | 2019-06-01 21:04 | Death Summary ---
Summary Date : 06/01/19 Time of :: 14:20 Autopsy: No Resuscitation Status: Comfort Measures Only - Final Diagnosis (1) Pulmonary hemorrhage Is this a current diagnosis for this admission?: Yes (2) Coagulopathy Is this a current diagnosis for this admission?: Yes (3) Respiratory failure Is this a current diagnosis for this admission?: Yes (4) Shock circulatory Is this a current diagnosis for this admission?: Yes Hospital Course:: The patient was admitted to the hospital with an acute pulmonary hemorrhage. He required intubation and vasopressor therapy. His supratherapeutic INR was treated with 2 units of fresh frozen plasma and vitamin K. After that administration it was noted that his INR was still supratherapeutic and 2 more units of fresh frozen plasma were administered. From a circulatory standpoint the patient's blood pressure has been declining despite fluids and the use of 2 vasopressors. A third had to be added in the intensive care unit. Ongoing bicarb therapy to help with the severe respiratory acidosis. Despite the extremely aggressive measures the patient's condition continued to deteriorate. Several discussions were had with the patient's and again with multiple family members regarding the clinical situation and prognosis. Because the patient's condition was critical the prognosis was grave the option of comfort measures only was offered to the family. After several difficult discussions they all came to the conclusion that comfort measures were not appropriate and realistic next step. After that decision was made the orders were placed for discontinuation of all medications except those for analgesia and anxiolysis. The patient was then terminally extubated and family was allowed to be at the bedside. The patient within 30 minutes of terminal extubation. Cause of was pulmonary hemorrhage.
[2019-06-01] MEDS ORDERED: AZITHROMYCIN 500 MG in DEXTROSE 5%-WATER 250 ML IV SCH (22:00)
== END 2019-06-01 16:39 | disposition left against medical advice (07) | DRG 208 ==
LOC: ER 21:17 → EH 06-01 00:13 → ICU 06-01 08:25
PROVIDERS: ADMIT Internal Medicine; ATTEND Internal Medicine
PROC: 5A1935Z Respiratory Ventilation, Less than 24 Consecutive Hours (ICD-10-PCS; principal; 2019-05-31)
PROC: 30233L1 Transfusion of Nonautologous Fresh Plasma into Peripheral Vein, Percutaneous Approach (ICD-10-PCS; 2019-06-01)
PROC: 30233N1 Transfusion of Nonautologous Red Blood Cells into Peripheral Vein, Percutaneous Approach (ICD-10-PCS; 2019-06-01)
PROC: 5A1935Z Respiratory Ventilation, Less than 24 Consecutive Hours (ICD-10-PCS; 2019-06-01)
PROC: 0BH17EZ Insertion of Endotracheal Airway into Trachea, Via Natural or Artificial Opening (ICD-10-PCS; 2019-06-01)
PROC: 04HY32Z Insertion of Monitoring Device into Lower Artery, Percutaneous Approach (ICD-10-PCS; 2019-06-01)
PROC: 4A133B1 Monitoring of Arterial Pressure, Peripheral, Percutaneous Approach (ICD-10-PCS; 2019-06-01)
PROC: 4A133J1 Monitoring of Arterial Pulse, Peripheral, Percutaneous Approach (ICD-10-PCS; 2019-06-01)
DX: J44.1 Chronic obstructive pulmonary disease with (acute) exacerbation (principal); J18.1 Lobar pneumonia, unspecified organism; J96.02 Acute respiratory failure with hypercapnia; R04.89 Hemorrhage from other sites in respiratory passages; J44.0 Chronic obstructive pulmonary disease with (acute) lower respiratory infection; R57.8 Other shock; I10 Essential (primary) hypertension; E11.9 Type 2 diabetes mellitus without complications; F17.210 Nicotine dependence, cigarettes, uncomplicated; Z60.2 Problems related to living alone; I25.2 Old myocardial infarction; Z78.1 Physical restraint status; Z95.0 Presence of cardiac pacemaker; Z79.01 Long term (current) use of anticoagulants; Z79.899 Other long term (current) drug therapy; Z82.49 Family history of ischemic heart disease and other diseases of the circulatory system
CPT/HCPCS: 36415; 36430; 36620; 70450; 71045; 76604; 76937; 80048; 80053; 81001; 82550; 82553; 82803; 82962; 83010; 83605; 83690; 83735; 84484; 85025; 85384; 85610; 85730; 86850; 86900; 86901; 86920; 87040; 87045; 87070; 87205; 87493; 94002; 94640; C1751; J0171; J0456; J0696; J1720; J2270; J2370; J3430; J3490; J7030; J7050; J7060; J7620; P9016; P9017; S0164